=== PATIENT | male | born 1940 | race Caucasian/White ===

== ENCOUNTER 2017-12-12 13:29 | Inpatient (IN) | payer MEDICARE, BC ==
[2017-12-12 14:08] LABS: #Basophils 0.1 thou/uL (0.0-0.2); #Eosinphils 0.1 thou/uL (0.0-0.7); #Lymphocytes 0.8 thou/uL (1.20-3.40); #Monocytes 0.8 thou/uL (0.11-0.59); #Neutrophils 6.8 thou/uL (1.40-6.50); %Basophils 0.6 % (0.0-1.0); %Eosinophils 1.5 % (0.0-10.0); %Lymphocytes 9.8 % (21.0-51.0); %Monocytes 9.1 % (0.0-10.0); %Neutrophils 79.1 % (42.0-75.0); Hemoglobin 15.9 g/dL (14.0-18.0); Mean Corpuscular HGB CONC 33.2 g/dL (32.0-36.0); Mean Corpuscular Hemoglobin 29.9 pg (27.0-31.0); Mean Corpuscular Volume 90.1 fL (78.0-98.0); Mean Platelet Volume 8.8 fL (7.4-10.4); Platelet Count 276 thou/uL (130-400); RBC Distribution Width 15.2 % (11.5-14.5); Red Blood Cell (RBC) Count 5.33 mill/uL (4.70-6.10); White Blood Cell (WBC) Count 8.6 thou/uL (4.8-10.8)
[2017-12-12 14:31] LABS: ALT (SGPT) 8 U/L (8-55); AST (SGOT) 21 U/L (5-34); Albumin 3.8 g/dL (3.4-4.8); Alkaline Phosphatase 101 U/L (40-150); Anion Gap 18 mmol/L (10-20); BUN (Urea Nitrogen) 19 mg/dL (8.4-25.7); Bilirubin, Total 1.4 mg/dL (0.2-1.2); Calc. Creatinine Clearance 0 mL/min (70-130); Calcium 9.5 mg/dL (7.8-10.44); Carbon Dioxide 22 mmol/L (23-31); Chloride 98 mmol/L (98-107); Estimated GFR-MDRD 62; Globulin 3.2 g/dL (2.4-3.5); Glucose 91 mg/dL (83-110); Magnesium 2.5 mg/dL (1.6-2.6); Potassium 4.1 mmol/L (3.5-5.1); Sodium 134 mmol/L (136-145)
--- NOTE | 2017-12-12 14:38 | RAD ---
2 AP VIEWS OF CHEST: Date: 12/12/17 INDICATION: Syncope and lightheadedness. COMPARISON: Prior study dated 04/01/16. FINDINGS: There is stable mild cardiomegaly. Lungs are clear. No pleural effusion or pneumothorax is evident. N o acute osseous abnormality is noted. Midline sternotomy changes are stable. IMPRESSION: No acute cardiopulmonary abnormality. POS: [facility]
[2017-12-12 14:49] LABS: Troponin I 0.062 ng/mL (< 0.028)
[2017-12-12 16:39] LABS: Bilirubin Small (Negative); Blood, Urine Negative (Negative); Clarity CLEAR (Clear); Glucose, Urine (Dipstick) Negative (Negative); Leukocyte Negative (Negative); Nitrite Negative (Negative); Protein, Urine (Dipstick) 30 mg/dL (Neg-Trace); pH, Urine 5.5 (5.0-9.0)
[2017-12-12 16:41] LABS: Bacteria/HPF None Seen HPF (None Seen); Hyaline Casts/LPF 7-10 HYALINE CAST LPF (0-3 Hyaline); Pathc Cast-AUWi Flag 1.45 (0-2.49); Squamous Epithelial 0-3 HPF (0-3); WBC/HPF 0-3 HPF (0-3)
[2017-12-12 17:40] LABS: Troponin I 0.069 ng/mL (< 0.028)
[2017-12-12] MEDS ORDERED: Acetaminophen 325 MG TAB PO PRN (18:46)
[2017-12-12 18:50] VITALS: BMI 20.5
--- NOTE | 2017-12-12 20:02 | RAD ---
ABDOMEN TWO VIEWS: 12/12/17 HISTORY: Abdominal pain. Bloating and discomfort. COMPARISON: None. FINDINGS: There is extensive dilatation of air filled loops of small bowel. There is still evidence of air and fecal material in the right hemicolon. Scattered differential air fluid levels are noted. No pneumope ritoneum. Nonspecific punctate densities in the left upper quadrant. IMPRESSION: Partial small bowel obstruction is suspected. Better interrogation with an abdomen and pelvic CT util izing oral and IV contrast is recommended. POS: [facility]
[2017-12-12] MEDS: Sodium Chloride 0.9% 1,000 ML IV SCH (20:30)
[2017-12-12] MEDS: Apixaban 5 MG TAB PO SCH (20:30)
[2017-12-12] MEDS ORDERED: Ondansetron HCl/PF 4 MG/2 ML Vial IVP PRN (22:21)
--- NOTE | 2017-12-12 22:57 | HP ---
PRIMARY CARE PHYSICIAN: Dr. Laureano. CHIEF COMPLAINT: "Extremely dizzy when I stand up." HISTORY OF PRESENT ILLNESS: Mr. Arzate is a pleasant 77-year-old gentleman, who has a history of hyp ertension, coronary artery disease, history of atrial flutter, status post radiofrequency ablation. He was in his usual state of health until the last couple of weeks. He says he has been having troub le when he gets up out of bed. He says he feels extremely lightheaded and dizzy. He says that when he will sit down to rest then he would get palpitations and it will take him about 5 minutes or so to recover. He denies having any chest pain; however, he says that he has a history of atrial flutter, but had been in sinus rhythm for several years until just recently, he was diagnosed with atrial fib rillation. He says this was in 06/2017. He also was told he had some type of heart valve problem ar ound that same time. He says he had an appointment with Dr. Morley on today, but his symptoms wer e so bad that he could not take it anymore and had to call the ambulance to come. He said he was not sure he would even be able to make it to his car and be able to drive to the hospital. He also complains of some abdominal he calls it congestion and feeling bloated. He says he has not h ad a real bowel movement in several days. He denies having any blood in the stool, no dark stools. He did say that he did vomit on the way to the hospital, but he did not vomit any blood. He is not s ure if it is related to recently being started on Plaquenil, which he said he was started on about a week and a half ago. He also admits to losing about 20 pounds in the last 2 months, could be says he has not been able to eat very much and he also says that he recently had a positive Cologuard test a nd was in the process of scheduling a colonoscopy. REVIEW OF SYSTEMS: All systems were reviewed and are negative with the exception of an occasional co ugh with some congestion. PAST MEDICAL HISTORY: Significant for coronary artery disease, transient ischemic attack, hypertensi on, hyperlipidemia, atrial flutter, systemic lupus. PAST SURGICAL HISTORY: He is status post radiofrequency ablation, coronary artery bypass grafting mcdonald rgery, cataract surgery, and lens implant. ALLERGIES: No known drug allergies. SOCIAL HISTORY: He is . He has 1 child. He is a former smoker. He occasionally drinks. He would like to be a [employer] and his surrogate decision maker is his and that is Thierry Arzate. FAMILY HISTORY: Significant for coronary artery disease. CURRENT MEDICATIONS: Include Plaquenil 200 mg twice a day, Combigan eyedrops as well as Travatan eye drops, aspirin 81 mg daily, metoprolol extended release 50 mg daily, hydrochlorothiazide 12.5 mg karen y, Eliquis 5 mg twice a day, and Lipitor 10 mg, he says he only takes it twice a week. PHYSICAL EXAMINATION: GENERAL: He is alert and oriented. He appears to be in no acute distress. He is well-developed, bu t he does appear a bit thin for his height. VITAL SIGNS: Blood pressure was 136/91, heart rate 90, respiratory rate of 18, temperature is 97.8. HEENT: His pupils are equal, round, and reactive. Extraocular muscles are intact. His sclerae are anicteric. Throat: There is no erythema, no exudates. He did have slightly dry mucous membranes. His tympanic membranes were nonbulging. There was no fluid behind the drum. No redness. He did hav e an area behind the left ear, which was slightly tender and slightly raised, but there was no fluctu ance, no redness. NECK: There is no adenopathy, no bruits, no jugular venous distention. LUNGS: Clear to auscultation. There is no wheezing, no rales, no rhonchi. CARDIOVASCULAR: Heart rate is irregular. He did have what sounds like a S3 gallop. He has a grade 2/6 systolic murmur and it is a very odd, slightly clicking blowing sound. ABDOMEN: Slightly distended. Tympanic to percussion. It is nontender, nondistended. There is no d ullness to percussion and there is no evidence of any organomegaly. EXTREMITIES: There is no muscle tenderness, no joint effusions or redness. NEUROLOGIC: His muscle strength is 5/5 in both his upper and lower extremities and cranial nerves II -XII are intact. SKIN AND INTEGUMENT: There are no skin changes. There was some slight mottling, but no distinct janeth ruth reticularis. LABORATORY DATA AND IMAGING: His sodium is 134, potassium 4.1, chloride is 98, CO2 is 21, BUN of 18, creatinine is 1.15, glucose is 91, total bilirubin is 1.4. Troponin is 0.062. White blood cell cou nt is 8.6, hemoglobin is 15.9, hematocrit is 48, platelet count is 276. Urinalysis was essentially n egative. He had an EKG which showed atrial fibrillation with a right bundle branch block and he had some T-wave inversions in V1 through V3, this is by my reading. He also had a chest x-ray, which I r ead as having some cardiomegaly and no evidence of any specific airspace disease. There was no effus ion. ASSESSMENT AND PLAN: This is a 77-year-old gentleman that presents with the progressive complaint of dizziness and feeling lightheaded. I guess this could best be described as presyncope. I suspect t his might be related to both his atrial fibrillation as well as possible some volume depletion. The patient states that he does feel better after being given a liter of fluids in the ER. 1. With regards to presyncope, we will monitor him on telemetry to see if he has any significant karyn nges in his heart rate with regard to his atrial fibrillation. Consult Dr. Morley, who has seen luiz rainey fairly recently and he states he has had an echo within the last few weeks per his recollection. Therefore, we will hold off on ordering an echo at this time and place him on some fluids. 2. Abdominal discomfort and bloating. We will get an abdominal series just to make sure he does not have a partial bowel obstruction or fecal impaction. Based on the x-ray results, will depend on whe ther or not he requires any additional treatment. 3. His blood pressure appears to be well controlled. We will continue metoprolol, which will also h elp in his heart rate management. However, we will hold the hydrochlorothiazide given concerns for p ossible dehydration. 4. For systemic lupus, continue Plaquenil. 5. The patient will not require deep venous thrombosis prophylaxis as he is already on Eliquis for s troke prevention with regards to the atrial fibrillation.
[2017-12-12 23:38] LABS: Troponin I 0.126 ng/mL (< 0.028)
[2017-12-13 02:32] LABS: Troponin I 0.151 ng/mL (< 0.028)
[2017-12-13 05:08] LABS: #Eosinphils 0.1 thou/uL (0.0-0.7); #Lymphocytes 0.7 thou/uL (1.20-3.40); #Monocytes 0.8 thou/uL (0.11-0.59); #Neutrophils 5.8 thou/uL (1.40-6.50); %Basophils 0.4 % (0.0-1.0); %Eosinophils 1.5 % (0.0-10.0); %Lymphocytes 9.9 % (21.0-51.0); %Monocytes 10.6 % (0.0-10.0); %Neutrophils 77.6 % (42.0-75.0); Hemoglobin 13.7 g/dL (14.0-18.0); Mean Corpuscular HGB CONC 33.3 g/dL (32.0-36.0); Mean Corpuscular Hemoglobin 29.9 pg (27.0-31.0); Mean Corpuscular Volume 89.9 fL (78.0-98.0); Mean Platelet Volume 8.6 fL (7.4-10.4); Platelet Count 248 thou/uL (130-400); RBC Distribution Width 15.2 % (11.5-14.5); Red Blood Cell (RBC) Count 4.58 mill/uL (4.70-6.10); White Blood Cell (WBC) Count 7.4 thou/uL (4.8-10.8)
[2017-12-13 05:31] LABS: Anion Gap 14 mmol/L (10-20); BUN (Urea Nitrogen) 20 mg/dL (8.4-25.7); Calc. Creatinine Clearance 56 mL/min (70-130); Carbon Dioxide 24 mmol/L (23-31); Cardiac Risk 6.4 (Less than 4.5); Chloride 100 mmol/L (98-107); Cholesterol 135 mg/dl (< 200 Desired); Estimated GFR-MDRD 67; Glucose 77 mg/dL (83-110); HDL Cholesterol 21 mg/dL (>60 Neg Risk); LDL Cholesterol, Calculated 91 mg/dL; Potassium 4.6 mmol/L (3.5-5.1); Sodium 133 mmol/L (136-145); Triglycerides 113 mg/dL (Less than 150)
[2017-12-13] MEDS: Apixaban 5 MG TAB PO SCH (08:47)
[2017-12-13] MEDS: Aspirin 81 mg Enteric Coated Tablet PO SCH (08:47)
[2017-12-13] MEDS: Sodium Chloride 0.9% 1,000 ML IV SCH ×2 (14:07→19:45)
--- NOTE | 2017-12-13 14:07 | PDOC.PN ---
- Subjective Encounter Start Date: 12/13/17 Encounter Start Time: 14:06 Mr. Arzate was seen today in follow-up. He says he doesn't feel any better today than yesterday. He denies abdominal but admits to bloating. He has not had a bowel movement today. He denies chest pain or difficulty brathing. - Objective Resuscitation Status: Resuscitation Status FULL:Full Resuscitation MAR Reviewed: Yes Vital Signs & Weight: Vital Signs (12 hours) Temp Pulse Resp BP BP Pulse Ox 12/13/17 11:55 98.3 F 102 H 18 148/89 H 96 12/13/17 07:51 98.1 F 96 18 145/94 H 98 12/13/17 04:04 98.4 F 102 H 18 141/97 H 97 Weight Weight 147 lb 8 oz I&O: 12/12/17 12/13/17 12/14/17 06:59 06:59 06:59 Intake Total 582 Output Total 600 Balance 582 -600 Result Diagrams: 12/13/17 04:55 12/13/17 04:55 Phys Exam - Physical Examination HEENT: PERRLA Respiratory: no wheezing, no rales, no rhonchi, clear to auscultation bilateral Cardiovascular: no significant murmur, no rub, irregular 3/6 systolic murmur Gastrointestinal: soft, non-tender + distended, and tympanic to percussion, bowel sounds are diminished Musculoskeletal: no edema Dx/Plan (1) Pre-syncope Status: Acute (2) Atrial fibrillation Code(s): I48.91 - UNSPECIFIED ATRIAL FIBRILLATION Status: Acute (3) Partial small bowel obstruction Status: Acute (4) Coronary artery disease Code(s): I25.10 - ATHSCL HEART DISEASE OF [place] CORONARY ARTERY W/O ANG PCTRS Status: Chronic (5) Hypertension Code(s): I10 - ESSENTIAL (PRIMARY) HYPERTENSION Status: Chronic - Plan * Presyncope- this is likely due AFIB- his heart rate has been variable, and at times up to 140-150's for short periods- will await further recommendations from Cardiology * Abdominal bloating- Abdominal series was concerning for partial bowel obstruction- will check a CT scan of the abdomen and pelvis- GI- vs. Surgery consult depending on the results * He is NPO for now- may need to bridge him with Lovenox - pending CT scan results * HTN- blood pressure is slightly elevated- but within acceptable range- will add PRN Labetalol .
[2017-12-13] MEDS ORDERED: ISOVUE-370 76%-LOCM 1 ML ONE (14:14)
[2017-12-13] MEDS ORDERED: Labetalol HCl 100 MG/20 ML VIAL SLOW IVP PRN (14:18)
[2017-12-13] MEDS ORDERED: Digoxin 0.5 MG/2 ML AMP SLOW IVP SCH ×2 (15:00→21:00)
[2017-12-13] MEDS ORDERED: Glycopyrrolate 0.2 MG/ML 5 ML SYRINGE ONE (15:47)
[2017-12-13] MEDS ORDERED: PROPOFOL 200 MG/20 ML VIAL ONE (15:47)
[2017-12-13] MEDS ORDERED: PHENYLEPHRINE-NS 100 MCG/ML 10 ML SYRINGE ONE (15:47)
[2017-12-13] MEDS ORDERED: Lidocaine 1% PF 5 ML VIAL ONE (15:47)
[2017-12-13] MEDS ORDERED: Dexamethasone 20 MG/5 ML VIAL ONE (15:47)
[2017-12-13] MEDS ORDERED: Succinylcholine Chloride 20 MG/ML 10 ml SYRINGE FS ONE (15:47)
[2017-12-13] MEDS ORDERED: Ondansetron HCl/PF 4 MG/2 ML Vial ONE (15:47)
[2017-12-13] MEDS ORDERED: Metoprolol Tartrate 5 MG/5 ML VIAL ONE (15:47)
--- NOTE | 2017-12-13 16:08 | CT ---
CT OF ABDOMEN AND PELVIS PERFORMED WITH CONTRAST ENHANCEMENT: History: Abdominal pain and bloating. FINDINGS: The lung bases are clear of any infiltrative process. Within the left lower lobe there are some areas of questionable nodularity, the most pronounced is a 1.4 cm area noted on image 6 which could repres ent a pulmonary mass. There is a second vague density seen on the axial image 3, also in the left low er lobe. This examination was obtained in more of an arterial phase. The liver and spleen show no definite foc al abnormalities. Pancreas region is unremarkable. Gallbladder is normal in size. There is abnormal appearance to both adrenal glands. There is a somewhat enlarged flow attenuation ar eas and somewhat more focal discrete mass like area involving the inferior portion of the left adrena l gland. There is a somewhat bilobed appearing low attenuation mass which does not have simple cystic numbers involving the lower pole of the right kidney. It measures as much as 11.1 cm in dimension. A ssociated with this is pathologic adenopathy in the right renal hilar region with two nodes, one garrison uring 4.1 cm and the other 2.6 cm in maximum dimension. There is also small periaortic and aortocaval nodes which while not significantly enlarged, appear abnormal and some mesenteric nodes, again not p athologically enlarged but somewhat rounded in appearance which is somewhat worrisome. The minimal fa t stranding adjacent to the splenic flexure of the colon, I cannot exclude that this represents some type of omental or mesenteric infiltration. There is high grade small bowel obstruction, somewhat unusual in that there appears that there is mor e than one transition area. I do not see any definite mass associated with areas of transition, some of which are in the mid abdomen and some in the lower abdomen. CT OF PELVIS PERFORMED WITH CONTRAST ENHANCEMENT: There are some soft tissue changes which are low attenuation and almost approach the fluid filled sma ll bowel that is seen in this area along the left side of the rectum. Review of osseous structures show no lytic or blastic bony change. IMPRESSION: 1. High grade small bowel obstruction, somewhat unusual in appearance as there is more than one trans ition point with some nondilated bowel loops in the midabdomen which transition again to more dilated bowel loops and then a second area of transition near the more distal ileum. No mass associated with these findings. The decompressed bowel shows some increased enhancement. I am not certyain of the ca use but entities such as Chrohns can cause this appearance. 2. 11.1 cm lower pole right renal mass, which appears to be solid. This is associated with pathologic appearing adenopathy in the right renal hilar region. There is also a small but abnormally numerous nodes in the aortocaval and periaortic region and some slightly prominent rounded mesenteric nodes. 3. Questionable left lower lobe pulmonary nodules. Further evaluation of this area with CT is recomme nded. 4. Findings suspicious for adrenal metastatic disease. Given the large right renal lesion, these hayes ges are probably on the basis of a renal cell carcinoma. I am attempting to contact Dr. Ruggiero at thi s time. 5. CT of chest reccomended to evauluate possible lung masses. POS: [facility]
[2017-12-13] MEDS ORDERED: Morphine 4 MG/ML Carpuject SLOW IVP PRN (17:02)
--- NOTE | 2017-12-13 17:02 | EKG ---
Test Reason : Blood Pressure : / mmHG Vent. Rate : 094 BPM Atrial Rate : 468 BPM P-R Int : 000 ms QRS Dur : 166 ms QT Int : 404 ms P-R-T Axes : 000 165 028 degrees QTc Int : 505 ms Suspect arm lead reversal, interpretation assumes no reversal Atrial fibrillation Right bundle branch block Lateral infarct , age undetermined Abnormal ECG Confirmed by DR. Ling GARNETT MD ([id number]) on 12/13/2017 5:02:18 PM Referred By: Confirmed By:DR. Ling GARNETT MD
--- NOTE | 2017-12-13 17:05 | PDOC.EVN ---
Event Note - Event Note Event Note: CT scan results were noted. I left a message for Dr. Griffin to let him know I have reviewed the CT scan and report. I discussed them with the patient, with his at the bedside. Will Place an NG tube, and add medication for pain as now he notes more abdominal pain. Will consult General Surgery, Gastroenterology , and Urology.
--- NOTE | 2017-12-13 17:47 | CON ---
DATE OF CONSULTATION: 12/13/2017 DATE OF ADMISSION: 12/12/2017 CARDIAC CONSULTATION Please refer to the notes already dictated by nurse practitioner Gia Pinto. INDICATION FOR CONSULTATION: A 77-year-old patient with dizziness, lightheadedness, and atrial fibrillation as well as abdominal discomfort. We were asked to see him due to his lightheadedness and atrial fibrillation with rapid ventricular response. HISTORY OF PRESENT ILLNESS: This is a very pleasant 76-year-old gentleman who has a history of atrial fibrillation which is felt to be chronic now. He has had history of bypass surgery in the past. He developed atrial fibrillation. He has undergone 2 ablations of atrial flutter in the past. With the atrial fibrillation, he does have occasional rapid ventricular response. He complains of some dizziness and sometimes unable to eat or lightheadedness. He is unable to eat or even the shave some mornings, when he gets up, he feels lightheaded and has to sit down. This may be due to the tachycardia associated with atrial fibrillation. He has been placed on Eliquis and also was taking 325 mg of aspirin. He has had ejection fraction in the past about 65%, this was back in 2006. He underwent a repeat echocardiogram in June of this year which showed ejection fraction of 55%-60% with only mild mitral and tricuspid valve regurgitation. He has had a stress test also in June of this year which showed no ischemia. Ejection fraction is estimated at 53%. He did have bypass surgery in 2006. He has been doing relatively well, but recently, he has noted that he has been feeling like he can empty his bowels when he has a bowel movement and he then did a home study himself and sent that off which showed possibly he did have an abnormality at least he feels uncertain as to whether or not that was due to some DNA markers or whether or not he had positive heme in the stools, but my suspicion is he was heme positive. He has been apparently making efforts to obtain GI consultation for evaluation for colonoscopy, but at this time he feels like he has some mild bloating and he is in the hospital at this time due to having the lightheadedness and the abdominal discomfort and he is now being prepped to undergo a CT scan with contrast and he is in the process of trying to drink the contrast material. He denies any chest pain and he does notice the palpitations and rapid heart rates and does have some lightheadedness and even at times now the heart rates in the 100s with the atrial fibrillation. His admitting EKG showed a heart rate of 94 with atrial fibrillation and a right bundle branch block. Since that time, he has had episodes of the atrial fibrillation with the heart rate was increased up to 140 to 150 beats per minute. He is on a beta kong and this may need to be adjusted to increase the dose. Hopefully, his blood pressure will tolerate that, he had been taking metoprolol 50 mg once a day. Once we have finished the evaluation of the GI studies and he can take p.o. again, then we will increase the dose of beta blockers if he tolerates this. Also of note, patient over the last couple of months has lost over 20 pounds in weight. He denied any significant diarrhea or any other reason for the weight loss. He is not significantly anemic. His hemoglobin is 13.7. Also, we were asked to see the patient as he has some indeterminate cardiac enzymes and troponin I on admission was 0.069 increased up to 0.1, and is now up to 0.15, not unlikely in someone who has had some tachycardia associated with atrial fibrillation. The BNP was also slightly elevated at 493, but again he does not have any indication that he has any congestive heart failure at this time. PHYSICAL EXAMINATION: GENERAL: Reveals a well-developed, well-nourished gentleman in no acute distress. He is alert. He is oriented. VITAL SIGNS: His blood pressure is 149/89, heart rate is anywhere between 80s- 102-105 and is actually at one time gone up to 140-150, but right at the present time, his heart rate is less than 100, respiratory rate is 18, he is afebrile and O2 saturation 96%. HEENT: Head to be normocephalic, atraumatic. Carotid pulses are present. There are no bruits. CHEST: Clear to auscultation without rales, rhonchi or wheezing. CARDIOVASCULAR: Exam reveals a tachycardia with an irregular regular rhythm. He does have a systolic murmur at the apex. There were no heaves or thrills noted. ABDOMEN: Soft and nontender. He does have some tympany. He has increased bowel sounds. I cannot palpate any masses. EXTREMITIES: Show no clubbing, cyanosis or edema. He does have some mild discoloration of the lower extremities from the knees down to the feet ,a grayish type discoloration, but otherwise no edema was noted and pedal pulses are difficult to palpate. I cannot palpate pedal pulses, I could palpate popliteal pulses. NEUROLOGIC: The patient appears to be intact. IMPRESSION: 1. At this time is an elderly gentleman with a history of some GI discomfort, some mild bloating and probably guaiac positive stools with a weight loss of 20 pounds. This is certainly concerning for this gentleman who may have underlying malignancy. He will be evaluated today and further recommendations will depend on the followup of these studies and these followups. 2. Atrial fibrillation with rapid ventricular response. We will adjust his medications and we can add digoxin at this time for rate control and further care of the patient with atrial fibrillation will be dealt with by Dr. Morley when he sees the patient tomorrow. 3. Hypertension. He is under reasonable control at this time, slightly elevated. We can increase the beta blockers to cover the tachycardia as well as the elevation of the blood pressure. 4. History of coronary artery disease. He does not appear to be having any issues at this time from his coronary artery disease standpoint. He underwent bypass surgery 11 years ago and apparently has been doing well since that time. We will also hold his Eliquis at this time in anticipation of probable further GI evaluation. He is also on aspirin 81 mg a day and has been placed on Lovenox. We will be very careful with Lovenox and will watch for bleeding should he have some type of colon abnormality or mass that could start to hemorrhage. JASPREET
[2017-12-13] MEDS ORDERED: Meropenem 2 GM in Sodium Chloride 0.9% 100 ML IVPB SCH (18:30)
[2017-12-13] MEDS: NS 0.9% w/ 20 MEQ KCL 1,000 ML/1,000 ML BAG IV SCH (19:45)
--- NOTE | 2017-12-13 19:53 | HP ---
HISTORY OF PRESENT ILLNESS: A 77-year-old male, retired 8 weeks, has been experiencing abdomin al distention and bloating. He feels that when he empties his bowels, they are incomplete. Bowel mo vements have been scant and abnormal. He has not had a normal bowel movement for several weeks. He passed a scant amount of flatus yesterday, but he cannot remember when he last passed flatus. He was feeling very weak, had a near syncopal episode, called EMS and presented to the emergency room where he was evaluated and admitted yesterday. He had equivocally elevated troponins, elevated BNP and wa s placed on observation unit. Abdominal x-ray suggested obstruction. Today, he had a CAT scan of e abdomen and pelvis with oral contrast revealing changes consistent with small bowel obstruction, sp lenic flexure, colon abnormality, questionable significance 11.5 cm right renal mass, left renal callie r pathologic lymphadenopathy, left lower lobe lung nodules, periaortic questionably significant lymph adenopathy. The patient has never had an abdominal operation. He had a positive saw Dr. Vasquez 4-5 days ago and colonoscopy was planned in the future. He is on Eliquis for atrial fibrillation and I would have to be held. Last dose of Eliquis was yesterday morning more than 36 hours ago. The patient has bee n on therapeutic Lovenox received 16 mg subcu this morning. I have ordered a pill that for now. He has been in atrial fibrillation, RVR and treated medically for that. Dr. Ulises Coughlin has seen him. Se e below. ALLERGIES: None. TOBACCO: None. ALCOHOL: Rarely. MEDICATIONS AT HOME: Travatan eyedrops, metoprolol 50 mg at bedtime, Plaquenil 200 mg b.i.d., hydroc hlorothiazide 12.5 daily, brimonidine tartrate, atenolol, Combigan eyedrops b.i.d., Lipitor 40 mg a d ay, aspirin 81 mg a day, Eliquis 5 mg b.i.d., last dose 09:24 p.m. or 09:25 a.m., none since. PAST SURGICAL HISTORY: Coronary artery bypass grafting in 2010. He has never had a colonoscopy. PAST MEDICAL HISTORY: Coronary artery disease, coronary bypass grafting 11 years ago, normal chemica l stress test in Dr. Morley's office earlier this year. Echocardiogram, normal EF 60%-65% earlier this year, chemical stress test 53% ejection fraction, cardiac ablation for atrial fibrillation in t he past. REVIEW OF SYSTEMS: [place] point noncontributory otherwise. SOCIAL HISTORY: The patient is and lives in [place]. FAMILY HISTORY: Noncontributory. PHYSICAL EXAMINATION: VITAL SIGNS: 5 feet and 11 inches, 20 BMI, 97.2, 110, 135/80. HEAD, EYES, EARS, NOSE, AND THROAT: Unremarkable. LUNGS: Clear to auscultation. CARDIAC: Regular rate and rhythm without murmur or gallop. ABDOMEN: Distended, tympanitic. Increased bowel sounds. NG tube in place. EXTREMITIES: Unremarkable. LABORATORY DATA: Sodium 133, potassium 4.6, chloride 100, carbon dioxide 24, creatinine 1.08, GFR 67 , glucose 77. Troponins elevated, BNP yesterday 493, hemoglobin 13.7, white count 7.4. ASSESSMENT AND PLAN: 1. Small bowel obstruction in a patient who has not had abdominal operation. The right renal mass i s concerning and there is evidence of suggested metastatic disease with a left renal perihilar lympha denopathy, abnormal splenic flexure colon area and pulmonary nodules, left lower lobe. Positive [place] guard stool test 5 days ago, referred to Dr. Vasquez. Radiologic findings do not suggest colon obstruct ion from the splenic flexure process, but more of a small-bowel obstruction which is concerning this may be due to metastatic disease. Would recommend exploratory laparotomy tonight, bowel resection as indicated, possible colostomy. Risk and benefits discussed, he consents. 2. Coronary artery disease, stable, seen by Dr. Coughlin and his mild troponin elevation is more from de sloane ischemia from his RVR that is better controlled and resolving. Would plan to monitor him postop eratively IMCU or ICU tonight. 3. Right renal mass with evidence of metastasis. 4. History of atrial fibrillation on anticoagulation, held for more than 36 hours. 5. Poor IV access, IV right antecubital placed by EMS. We will plan placement of central line intr aoperatively. 6. Never has had a colonoscopy.
[2017-12-13] MEDS ORDERED: Sodium Chloride 0.9% 20 ML ONE (19:55)
[2017-12-13] MEDS ORDERED: Fentanyl 250 MCG/5 ML VIAL ONE (20:05)
--- NOTE | 2017-12-13 20:47 | CON ---
DATE OF CONSULTATION: 12/13/2017 HISTORY OF PRESENT ILLNESS: The patient is a 77-year-old male, who presented with weakness and dizziness and feeling of wanting to pass out. He thought this was his atrial fibrillation causi ng him problems. He does report some diffuse abdominal discomfort that has been going on for several months. He also reports a 20-pound weight loss. He has had no nausea or vomiting. He has not had much change in his bowel habits. He saw Dr. Vasquez in the office on 12/08/2017 for a positive Cologuar d test. He has never had a previous colonoscopy. PAST MEDICAL HISTORY: Includes atrial fibrillation, aortic stenosis, inflammatory polyarthritis, cor onary artery disease. PAST SURGICAL HISTORY: Coronary artery bypass, angioplasty. He denies any abdominal surgery. ALLERGIES: No known allergies. MEDICATIONS: Plaquenil 200 mg 1 p.o. daily, prednisone 5 mg p.o. daily, aspirin 81 mg p.o. daily, me toprolol 50 mg p.o. daily, hydrochlorothiazide 12.5 mg 1 p.o. daily, Eliquis 5 mg p.o. b.i.d., atorva statin 40 mg p.o. daily. SOCIAL HISTORY: He is . Occasional alcohol use. Former smoker, but does not smoke now. FAMILY HISTORY: Negative for GI or liver disease. REVIEW OF SYSTEMS: Constitutional: Positive for weight loss. Negative for fever or chills. Eyes: No blurred vision or double vision. ENT: No sore throat or earaches. Cardiovascular: No chest pa in or palpitations. Pulmonary: No shortness of breath, cough, or wheezing. Gastrointestinal: See above. Genitourinary: No hematuria or dysuria. Musculoskeletal: No joint pain or muscle weakness. Skin: No rashes. Neurologic: No numbness or seizure activity. Positive for lightheadedness. PHYSICAL EXAMINATION: GENERAL: Shows a thin white male in no acute distress. VITAL SIGNS: Temperature is 97.2, pulse 110, respiratory rate 15, blood pressure 135/80. HEENT: Significant for nasogastric tube. NECK: Supple. CHEST: Clear. CARDIOVASCULAR: Regular rate and rhythm. ABDOMEN: Diffusely tympanitic and somewhat distended. It is nontender. Bowel sounds are present. RECTAL: Deferred. EXTREMITIES: Normal. LABORATORY DATA: Admission hemoglobin of 59, hematocrit of 48, white blood cell count of 8.6. Chemi stries showed a sodium of 134, CO2 of 22, total bilirubin 1.4. CT shows high-grade small-bowel obstr uction, somewhat unusual in appearance with more than 1 transition zone. There was a 11.1 cm right r enal mass and adenopathy associated with this. There are questionable left lower lobe pulmonary nodu les. ASSESSMENT: 1. Small-bowel obstruction. 2. Right renal mass - this probably represents metastatic renal cell carcinoma. 3. Atrial fibrillation, on Eliquis. 4. History of positive Cologuard. RECOMMENDATIONS: 1. Stop Eliquis. 2. Surgical opinion. 3. N.P.O.
[2017-12-13] MEDS ORDERED: Enoxaparin Sodium 60 MG/0.6 ML SYRINGE SC SCH (21:00)
--- NOTE | 2017-12-13 21:24 | CON ---
DATE OF CONSULTATION: 12/13/2017 ROOM NUMBER: [id number] PRIMARY CARE PHYSICIAN: Tonny Laureano M.D. PRIMARY DINKEY OPERATOR SLATE: Nicolas Morley M.D. REFERRING PHYSICIAN: Simi Ruggiero REASON FOR CARDIOLOGY CONSULTATION: Atrial fibrillation and palpitation. HISTORY OF PRESENT ILLNESS: Mr. 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 The last couple days, he could not get up in the morning from the bed due to th e weakness, shortness of breath, and heaviness to the bilateral lower extremities. However, yesterda y morning, his symptoms get worsen, so patient's family member called the EMS and the patient was tra nsferred to the [facility] for further evaluation and treatment. At this moment , patient is to continue feeling weakness; however, patient does have shortness of breath or heavines s in the bilateral lower extremities. The patient denies any palpitation or any syncopal episode or he never passing out. However, he also complained of cramping in his stomach for several days. He h ad at home, which was positive and he was referred to Dr. Vasquez for [facility] colon[facility]. [facility] Mor[facility] yesterday in the office for colonoscopy procedure clearance by the control clerk; however, instead the patient presents to the Emergency Department her e. He is continued to complain of abdominal pain with cramping and he refused to palpitate his stoma ch at this moment. At the initial Cardiology assessment, patient denies shortness of breath, palpita tion or fluttering in his chest or lightheadedness, dizziness, or any other cardiac complaints except the feel still weakness and shortness of breath with mild movement. He denied blood in the stool or urine. Patient has a significant family history of coronary artery disease and the patient himself has a his tory of coronary bypass surgery in 2006, patient has a long history of atrial fibrillation and flutte r. The patient has atrial flutter ablation x2, which last one was in 2013. Since then, the patient' s heart rhythm has changed to the chronic atrial fibrillation. He has been on Eliquis 5 mg twice a d ay. The patient's last stress test was done in 06/2017, which no ischemia with EF of 53% and last ec hocardiogram was done in 06/2017 with EF of 55% to 60%, mild mitral valve regurgitation, mild tricusp id regurgitation, and mild to moderate pulmonary valve regurgitation. He has not seen a rheumatologi st for a long period time for rheumatoid arthritis. PAST MEDICAL HISTORY: 1. Coronary artery disease. 2. Hypertension. 3. Hyperlipidemia. 4. Atrial flutter and atrial fibrillation with Eliquis 5 mg twice a day. 5. Bilateral glaucoma. 6. Rheumatoid arthritis. 7. Possible TIA in and out in March 2016. PAST SURGICAL HISTORY: Coronary artery bypass graft surgery in 2006, left cataract surgery, and the atrial flutter ablation x2 which last one was in 2013, since then he has been in atrial fibrillation on EKG. FAMILY HISTORY: Patient's father underwent a CABG at age of around 60s. The patient's brother under went a CABG at the age of 52. Patient's mother had a valve replacement around the age of 70s. There are significant hypertension history in his families. SOCIAL HISTORY: The patient is . 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 The patient has a one child who live well. He used to smoke one pack a day for 40 yea rs. He quit in 2007. He enjoyed alcohol less than once a week. He denied illicit drug abuse. He d rinks 3 cup of coffee in the morning. REVIEW OF SYSTEMS: A 12-point review of systems was negative, unless otherwise mentioned in the HPI or below. The patient complained of abdominal pain/cramps for several days. The patient denies bloo d in the stool or urine and the patient complained of joint problems due to the long history of rheum atoid arthritis. ALLERGIES: He has no known drug allergy. HOME MEDICATIONS: 1. Metoprolol succinate 50 mg once a day. 2. Travatan 2.5 mL 1 drop each eye at night. 3. Microzide 12.5 mg once a day. 4. Eliquis 5 mg twice a day. 5. Plaquenil 200 mg twice a day. 6. Lipitor 40 mg once a day. 7. Combigan 1 drop in each eye twice a day. 8. Aspirin 81 mg once a day. PHYSICAL EXAMINATION: VITAL SIGNS: Blood pressure 135/80, pulse is 110, atrial fibrillation with right bundle mushtaq block . Respiratory rate of 15, O2 sat 98% on room air, temperature 97.2. GENERAL: The patient is alert, oriented x4, and patient not in acute distress. He is well developed . HEAD/EYES: Atraumatic, normocephalic. Eyes: Extraocular muscles movement intact. ENT/MOUTH: Oral and nasal mucosa are moist without lesion. NECK: Supple. No JVD. Normal range of motion. LUNGS: Clear to auscultation bilaterally. No wheezing, rales, or rhonchi noted. CARDIOVASCULAR: Irregularly irregular. No murmur, hives, thrill noted, 2+ pulses in bilateral lower extremities. No edema. Carotid pulses are present without bruit or thrill. ABDOMEN: The patient refused to palpate his stomach, but bowel sounds are present. MUSCULOSKELETAL: The patient able to move all extremities. Patient deny any complication claudicati on. SKIN: Warm and dry. No skin lesion, bruit, or arrhythmia but he has a discoloration on the lower bi lateral extremities. NEUROLOGIC: The patient alert, oriented x4. Nonfocal. LABORATORY DATA: WBC 7.4, hemoglobin 13.7, hematocrit 41.2, platelet 248. Chemistry: Sodium 133, p otassium 4.6, creatinine is 1.08, magnesium 2.5, AST is 21, ALT 8. Troponin I is 0.069, 0.100, 0.126 , and 0.151. BNP is 493.9, cholesterol 135, triglycerides 113, HDL 21, LDL 91. RADIOLOGY: Chest x-ray showed no acute cardiopulmonary abnormality. Abdomen and pelvis CT scan revi ew high grade small-bowel obstruction and 11.1 lower pole right renal mass and a questionable left lo wer lobe pulmonary nodule. ASSESSMENT AND PLAN: 1. Indeterminate troponin level, possible due to the chronic atrial fibrillation with rapid ventricu lar response. At this moment, the patient's heart rate is 100-110s. The patient's digoxin was alrea dy ordered by Dr. Coughlin and the patient is on Lovenox twice a day. The patient Eliquis is on hold at this moment and the patient on the metoprolol 50 mg once a day at night. If we cannot control the azar harvey's heart rate with digoxin, we might like to start some other different medication, possible dil tiazem, Multaq, amiodarone. At this moment, we would like to continue to monitor on the telemetry. 2. Small-bowel obstruction. General surgeon consult was ordered already and also GI doctors. GI co nsult was ordered by patient's primary service at this moment, the patient is n.p.o. 3. Coronary artery disease with a history of coronary artery bypass graft done in 2006. Patient's c ondition is stable at this moment, we would like to continue to monitor. 4. Hypertension check. The patient's blood pressure is stable at this moment. 5. Hyperlipidemia. Patient is on Lipitor 40 mg once a day. At this moment, we would like to hold t his medication until the patient's condition is stable. 6. Right renal mass. Urology consult was ordered by patient's Primary Service. 7. Questionable left lower lobe pulmonary nodule, which is managed by patient's primary care doctor at this moment. Thank you very much for allowing the Cardiology Service to participate in care of this patient. We w ill follow along the patient care team and make a recommendation as appropriate.
[2017-12-13] MEDS ORDERED: SUGAMMADEX SODIUM 200 MG/2 ML VIAL ONE (21:58)
[2017-12-13] MEDS ORDERED: hydrALAZINE 20 MG/ML VIAL ONE (22:08)
[2017-12-13] MEDS ORDERED: fentaNYL Citrate/PF 2,000 MCG in Sodium Chloride 0.9% 60 ML IV PRN (22:09)
[2017-12-13] MEDS ORDERED: diphenhydrAMINE 25 MG CAP PO PRN (22:09)
[2017-12-13] MEDS ORDERED: diphenhydrAMINE 50 MG/ML VIAL IM PRN (22:09)
[2017-12-13] MEDS ORDERED: Ondansetron HCl/PF 4 MG/2 ML Vial IVP PRN ×2 (22:09)
[2017-12-13] MEDS ORDERED: Promethazine HCl 25 MG/ML VIAL IM PRN ×2 (22:09)
[2017-12-13] MEDS ORDERED: Promethazine HCl 25 MG/ML VIAL SLOW IVP PRN (22:09)
[2017-12-13] MEDS ORDERED: Naloxone HCl 0.4 mg/ml Vial IV PRN (22:09)
[2017-12-13] MEDS ORDERED: Zolpidem Tartrate 5 MG TAB PO PRN (22:09)
[2017-12-13] MEDS ORDERED: diphenhydrAMINE 50 MG/ML VIAL IVP PRN (22:09)
[2017-12-13] MEDS ORDERED: Communication Order-Pharmacy FS SCH (22:15)
--- NOTE | 2017-12-13 22:37 | RAD ---
RADIOGRAPH CHEST 1 VIEW: 12/13/17 at 10:06 p.m. HISTORY: Central line placement. COMPARISON: 12/12/17, 2:08 p.m. FINDINGS: There are no air space densities, pulmonary edema, pneumothorax, or cardiomegaly. The lateral costop hrenic angles are sharp. There is a new left subclavian central vascular catheter with distal tip ove rlying the expected location of the SVC. There is a new NG tube with distal tip in the left upper kan drant. Again noted are the sternotomy wires. IMPRESSION: 1. No acute cardiopulmonary findings. 2. Interval placement of central vascular catheter. 3. Interval placement of nasogastric tube. jesse [] POS: KARUNA
--- NOTE | 2017-12-13 23:35 | OP ---
DATE OF PROCEDURE: 12/13/2017 PREOPERATIVE DIAGNOSES: Poor IV access, 12 cm right renal mass, multiple extensive lymphadenopathy, and small bowel obstruction. POSTOPERATIVE DIAGNOSES: Poor IV access, 12 cm right renal mass, multiple extensive lymphadenopathy, small bowel obstruction, segmental small bowel tumor, high grade partial obstruction. No abnormalit ies appreciated in the colon on gross evaluation and manual and visual inspection. PROCEDURES: Exploratory laparotomy, segmental small bowel resection biopsy of mesenteric node and bi opsy of mesenteric implant. Left subclavian vein triple lumen catheter. Note, very large right luis armando l mass palpated consistent with CAT scan findings. SURGEON: Pacheco Rascon M.D. ANESTHESIA: General. ESTIMATED BLOOD LOSS: Less than 50 mL. PROCEDURE IN DETAIL: The patient was taken to the operating room where under general anesthesia, a F oley catheter was placed. Left periclavicular area prepared with ChloraPrep, draped in routine fashi on. Seldinger technique used to place a triple lumen catheter, removed the J-wire, securing the cath eter with 2 interrupted sutures of 3-0 silk. Biopatch sterile dressing applied. Each port aspirated blood and flushed saline solution. Abdomen prepared with ChloraPrep, draped in routine fashion. Midline incision was made centered abou t the umbilicus, carried down the skin and subcutaneous tissue and small bowel inspected to the termi nal ileum to ligament of Treitz. There was in the mid ileum, segmental stricture appearing like that of a tumor, possibly a small bowel tumor. This high grade partially obstructive. There were no oth er abnormalities of small bowel noted. A segment of small bowel resected by dividing the mesentery w ith the LigaSure. An approximately 65 inches of small bowel resected and a primary [id number] anas tomosis created with a staple technique, two fires of the ALAYNA blue load 75 stapler. Mesenteric defec t closed with 3-0 silk. Staple line reinforced with interrupted Lembert suture of 3-0 silk, lumen wa s palpated. There was noted to be an implant in the mesentery adjacent to small bowel and a shave bi opsy was obtained and placed in the same container as a node excised from the proximal jejunum mesent deejay. Good hemostasis noted. Small bowel was run to and fro ligament of Treitz to cecum 3 times. Th e colon inspected and noted to be normal, a large right renal mass appreciated. A sponge, needle cou nts were correct. Seprafilm was placed. Midline fascia closed with #1 PDS, skin with jhoan. Ster ile dressing applied. The patient tolerated the procedure well.
[2017-12-14] MEDS: Digoxin 0.5 MG/2 ML AMP SLOW IVP SCH ×2 (00:19→06:25)
[2017-12-14] MEDS: Sodium Chloride 0.9% 1,000 ML IV SCH ×3 (00:20→15:38)
[2017-12-14] MEDS: Ketorolac Tromethamine 30 MG/ML VIAL IVP SCH ×4 (00:20→17:51)
[2017-12-14] MEDS: Acetaminophen 1,000 MG in Premix Bag 1 BAG IVPB SCH ×4 (00:20→17:51)
[2017-12-14] MEDS: NS 0.9% w/ 20 MEQ KCL 1,000 ML/1,000 ML BAG IV SCH ×2 (03:15→15:38)
[2017-12-14 06:25] LABS: Anion Gap 18 mmol/L (10-20); BUN (Urea Nitrogen) 16 mg/dL (8.4-25.7); Calc. Creatinine Clearance 68 mL/min (70-130); Carbon Dioxide 17 mmol/L (23-31); Chloride 104 mmol/L (98-107); Estimated GFR-MDRD 83; Glucose 80 mg/dL (83-110); Potassium 3.9 mmol/L (3.5-5.1); Sodium 135 mmol/L (136-145)
[2017-12-14 06:56] LABS: Hemoglobin 12.4 g/dL (14.0-18.0); Mean Corpuscular HGB CONC 32.9 g/dL (32.0-36.0); Mean Corpuscular Hemoglobin 29.7 pg (27.0-31.0); Mean Corpuscular Volume 90.2 fL (78.0-98.0); Mean Platelet Volume 8.7 fL (7.4-10.4); Platelet Count 232 thou/uL (130-400); RBC Distribution Width 15.1 % (11.5-14.5); Red Blood Cell (RBC) Count 4.19 mill/uL (4.70-6.10); White Blood Cell (WBC) Count 2.7 thou/uL (4.8-10.8)
[2017-12-14 07:57] LABS: Band 60 % (5-11); Lymphocytes 5 % (21-51); MDiff Complete? YES; Metamyelocyte 1 % (0-0); Monocytes 3 % (0-10); Neutrophil 27 % (42-75); PLT Morphology Comment Appears Adequate; Reactive Lymphocytes 3 % (0-10); Reflex for Review?? YES; Vacuoles SLIGHT
[2017-12-14] MEDS ORDERED: Digoxin 0.125 MG TAB PO SCH (09:00)
--- NOTE | 2017-12-14 09:47 | PDOC.PN ---
- Subjective Encounter Start Date: 12/14/17 Encounter Start Time: 09:46 Mr. Arzate was seen today in follow-up of small bowel obstruction and renal mass. He says he is not hurting from the surgery, and in fact what bothers him most is " laying flat on my back, and this NG tube" - Objective Resuscitation Status: Resuscitation Status FULL:Full Resuscitation MAR Reviewed: Yes Vital Signs & Weight: Vital Signs (12 hours) Temp Pulse Resp BP Pulse Ox 12/14/17 08:17 98.1 F 114 H 16 123/70 100 12/14/17 08:00 96 12/14/17 06:25 112 H 12/14/17 04:25 98.7 F 114 H 18 118/70 100 12/14/17 03:15 120 H 12/14/17 00:19 120 H 12/13/17 23:40 100 Weight Weight 147 lb 8 oz I&O: 12/13/17 12/14/17 12/15/17 06:59 06:59 06:59 Intake Total 517 084 1823 Output Total 1100 700 Balance 582 -380 580 Result Diagrams: 12/14/17 05:30 12/14/17 05:30 Phys Exam - Physical Examination HEENT: PERRLA, sclera anicteric Respiratory: no wheezing, no rales, no rhonchi, clear to auscultation bilateral Cardiovascular: RRR, no rub 2/6 systolic murmur Gastrointestinal: soft, non-tender, no distention, positive bowel sounds Musculoskeletal: no edema Dx/Plan (1) Partial small bowel obstruction Status: Acute (2) Renal mass, right Code(s): N28.89 - OTHER SPECIFIED DISORDERS OF KIDNEY AND URETER Status: Acute (3) Pre-syncope Status: Acute (4) Atrial fibrillation Code(s): I48.91 - UNSPECIFIED ATRIAL FIBRILLATION Status: Acute (5) Coronary artery disease Code(s): I25.10 - ATHSCL HEART DISEASE OF [place] CORONARY ARTERY W/O ANG PCTRS Status: Chronic (6) Hypertension Code(s): I10 - ESSENTIAL (PRIMARY) HYPERTENSION Status: Chronic - Plan * Small Bowel Obstruction- he is s/p surgery to relieve the obstruction, and biopsies were sent * Renal Mass- await the pathology from the lymph node, and tumor found in the small bowel- will determine if this is consistent with renal cell carcinoma * AFIB- Heart rate is a bit elevated- will continue Digoxin IV * HTN- blood pressure is controlled * CAD- stable
[2017-12-14] MEDS: Aspirin 81 mg Enteric Coated Tablet PO SCH (09:49)
[2017-12-14] MEDS: Pantoprazole 40 MG VIAL IVP SCH (09:49)
--- NOTE | 2017-12-14 12:16 | CON ---
DATE OF CONSULTATION: 12/14/2017 HISTORY OF PRESENT ILLNESS: This is a 77-year-old gentleman status post lap, being conside red regarding multiple lung nodules. The patient has been in the hospital here now for several days. Yesterday he underwent a laparotomy with bowel resection. He was found to have a large right renal mass and a small-bowel obstruction, w hich was resected. He is presently in the [facility]. He is a former smoker, quit smoking in 1999, a pack a day for many years. No history of TB, pneumonia or asthma. Has lost about 20 pounds. PAST MEDICAL HISTORY: Pertinent for apparently lupus diagnosed, history of hypertension, coronary ar dona disease, atrial fibrillation, hypertension, history of possible TIA. PAST SURGICAL HISTORY: Bypass in 2006, cataract, ablation, recent lap. MEDICATIONS: His chronic medication included prednisone which he discontinued about 2 weeks ago, met oprolol 50 mg a day, Plaquenil 200 twice a day, Microzide 12.5 eyedrops, Lipitor 40, aspirin, Eliquis 5 mg twice a day. ALLERGIES: None. 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 REVIEW OF SYSTEMS: Otherwise, 10-point negative. PHYSICAL EXAMINATION: VITAL SIGNS: Blood pressure is 123/70, sats 96%, respirations 16, pulse 115, temperature 98. CHEST: Chest revealed decreased breath sounds without any wheezing. CARDIAC: Normal S1, S2, no gallops. ABDOMEN: Soft. No masses. LABORATORY: White count 2.7, H&H 12 and 37, platelet count 232, 60 bands, 27 neutrophils. Electroly geoff are normal. His chest x-ray shows a central line with no obvious acute infiltrates. CT abdomen and pelvis [facility] shows the previously noted small-bowel obstruction. A 7 cm right renal mass. Questionable left lower lobe pulmonary nodule, adrenal metastatic disease seen. IMPRESSION: 1. Status post lap, small-bowel obstruction. 2. Metastatic cancer found to be renal. 3. Tobacco abuse. 4. Coronary artery disease. 5. Atrial fibrillation. 6. Possibly lupus. PLAN: When patient is stable, may consider doing a CT of his chest. Otherwise, continue antibiotics , supportive care. We will follow while in the [facility]. This is a consultation note, 70 minutes, of which 50% spent in direct patient care.
--- NOTE | 2017-12-14 13:37 | CON ---
DATE OF CONSULTATION: 12/14/2017 REASON FOR CONSULTATION: Kidney and small intestinal mass. HISTORY OF PRESENT ILLNESS: A 77-year-old male with atrial fibrillation, coronary artery d isease, hypertension presenting with extreme lightheadedness. The patient states he has lost 20 poun ds in the last couple of months and in the last few weeks he got much more fatigued and was having tr ouble getting out of bed and feeling extremely lightheaded and feeling faint. He thought these sympt oms were due to his atrial fibrillation as he would also have some palpitations. He was diagnosed wi th atrial fibrillation in June of this year and has had radiofrequency ablation. The patient also c omplains of abdominal discomfort and feeling bloated and had not had a bowel movement in several days . He denied any blood in the stool or any hematuria. The patient had a positive hello Cologuard geoff t and was trying to schedule a colonoscopy prior to this admission. This has not been done. The pat ient states he smoked a pack of cigarettes per day for 40 years and quit in 2005. He states his moth er had breast cancer, but otherwise no family history of cancer. 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 He denies any fevers or drenching night sweats. The patient is very bothered by his NG tube and this is his main c omplaint today as he states he otherwise feels well after surgery yesterday. The patient was seen by Dr. Rascon who did a surgery and intraoperatively it was noticed the patient had an approximate 12 c m right renal mass consistent with findings on previous CT scan, extensive lymphadenopathy, a high gr carlos manuel small-bowel obstruction with a segmental small bowel tumor. No abnormalities were appreciated in the colon on gross evaluation. A mesenteric node and a biopsy of a mesenteric implant removed durin g surgery and sent to pathology. REVIEW OF SYSTEMS: Ten point review of systems negative except as per HPI. PAST MEDICAL HISTORY: Heavy smoker, coronary artery disease, atrial fibrillation, hypertension, high cholesterol, and SLE. PAST SURGICAL HISTORY: Coronary artery bypass, cataract surgery and radiofrequency ablation for atri al fibrillation. ALLERGIES: No known drug allergies. SOCIAL HISTORY: Former smoker, 40 pack years. He is with 1 child. Occasional alcohol. FAMILY HISTORY: Breast cancer in mother, otherwise heavy family history of coronary artery disease. CURRENT MEDICATIONS: Reviewed. PHYSICAL EXAMINATION: VITAL SIGNS: Temperature 98.1, pulse 114, respirations 16, saturating 100% on room air, blood pressu re 123/70. GENERAL: The patient is lying in bed in no acute distress with NG tube present and set to suction dr verduzco out dark red fluid. HEENT: Normocephalic, atraumatic. NG tube in place. No scleral icterus. NECK: No lymphadenopathy. LUNGS: Clear to auscultation bilaterally. CARDIOVASCULAR: Irregular rhythm, normal S1, S2 and a 2/6 systolic ejection murmur. ABDOMEN: Soft, nondistended, minimally tender to palpation. The patient is status post recent surge ry. EXTREMITIES: No edema. NEUROLOGIC: Cranial nerves II-XII are intact and otherwise nonfocal exam. PSYCHIATRIC: The patient is awake, alert, and oriented x3. LABORATORY DATA: White blood cells 8.6 on admission, today 2.7, hemoglobin 15.9 on admission, curren tly 12.4, platelets 232. Sodium 135, BUN 16, creatinine 0.89. CEA 2.30. IMAGING DATA: CT abdomen and pelvis with contrast dated 12/13/2017, high grade small-bowel obstructi on, 11.1 cm lower pole right renal mass which appears to be solid. This is associated with pathologi c appearing adenopathy in the right renal hilar region. There is also a small, but abnormally adriana us nodes in the aortocaval and periaortic region and some slightly prominent rounded mesenteric nodes , questionable left lower lobe pulmonary nodules. Findings suspicious for adrenal metastatic disease . Given the large right renal lesion, these changes are probably on the basis of renal cell carcinom a. ASSESSMENT AND PLAN: A 77-year-old male presenting with SBO and found to have a large righ t renal mass with local extension. The patient is status post surgery and bowel resection for small- bowel obstruction and lymph nodes and implants were referred to pathology for evaluation. The patien t likely has stage IV renal cell carcinoma based on scans and surgical findings. Would recommend CT of the chest to complete staging. This patient did have some indeterminate nodules seen in the lower lungs on CT of the abdomen and pelvis. We will follow up final pathology results and CT scan of the chest and the patient can follow up with me as an outpatient for treatment recommendations. I will continue to follow. Thank you for this consult.
--- NOTE | 2017-12-14 14:42 | CON ---
DATE OF CONSULTATION: 12/14/2017 UROLOGY INPATIENT CONSULTATION REASON FOR CONSULTATION: Right renal mass. REQUESTING PHYSICIAN: Hospitalist Service. 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 The azar harvey had a near syncopal episode at home. He did not feel safe driving to the hospital and therefor e, he called EMS. Leading up to this, the patient states he has had a history of atrial fibrillation . He has had several ablations for this in the past. He has a history of coronary artery disease an d a previous CABG in 2006. Over the past 3-4 months, he has also had gastrointestinal issues. He st ates he has had abnormal bowel movements. He has had the urge to have a bowel movement, but they hav e been scant and he feels like he has a large amount of residual. Over the past few days, he has had significant nausea and vomiting as well as weakness. When he presented to the emergency department, abdominal x-rays suggested obstruction. A CT scan of the abdomen and pelvis was performed with cont rast which demonstrated findings of small-bowel obstruction as well as a 12 cm lower pole enhancing r ight renal mass with hilar lymphadenopathy, retroperitoneal lymphadenopathy and left lower lobe lung nodules in the base. There was also some other retroperitoneal lymphadenopathy around the aorta. Th e patient was evaluated by General Surgery and was elected to have an exploratory laparotomy and this was performed. There was some mesenteric implants noted and one of these was resected for tissue di agnosis. The patient also had a central line placed. Urology has been consulted for further evaluat ion. Currently, the patient reports feeling better. He reports incisional abdominal pain. He is not pass ing flatus at this time. NG tube output has been significant. No additional nausea or vomiting. He denies any unexpected weight loss. No gross hematuria. No voiding complaints or lower urinary trac t symptoms. No family history of genitourinary malignancy. He has no other complaints at this time. REVIEW OF SYSTEMS: Full 12-point review of systems was performed and is negative other than that men tioned in the HPI. PAST MEDICAL HISTORY: 1. Coronary artery disease. 2. Atrial fibrillation. PAST SURGICAL HISTORY: 1. No abdominal surgeries. 2. CABG. MEDICATIONS: See medicine reconciliation form. This was reviewed and there are no changes. The pat jordy does take Eliquis, but this is currently being held. ALLERGIES: No known drug allergies. FAMILY HISTORY: Noncontributory. SOCIAL HISTORY: The patient is . He currently lives in [place], [place]. 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 PHYSICAL EXAMINATION: VITAL SIGNS: Temperature is 99.2, heart rate 97, blood pressure 126/71, respirations 16, oxygen satu ration 100% on room air. GENERAL: He is alert and oriented x3, no apparent distress. HEENT: Normocephalic, atraumatic. NECK: Supple, no masses or lymphadenopathy. CARDIOVASCULAR: Regular rate and rhythm. PULMONARY: Breathing unlabored. ABDOMEN: Soft, appropriately tender to palpation, moderately distended, surgical dressings in place clean/dry/intact, fullness to right flank. EXTREMITIES: Warm and well perfused. No edema. NEUROLOGIC: No focal deficits. RADIOLOGY DATA: CT abdomen and pelvis performed on 12/13/2017 demonstrates high grade small-bowel ob struction at 11.5 cm lower pole right renal mass which appears to be solid, and significant right yahir al hilar lymphadenopathy as well as some aortocaval lymphadenopathy also questionable left lower lobe pulmonary nodules. There was also question of possible adrenal metastasis as well. LABORATORY DATA: White blood cell count 2.7, hemoglobin 12.4, hematocrit 37.8, platelets 232. Sodiu m 135, potassium 3.9, chloride 104, bicarbonate 17, BUN 16, creatinine 0.89. ASSESSMENT: A 77-year-old male with high grade small-bowel obstruction, large enhancing right renal mass, retroperitoneal lymphadenopathy, lung nodules, adrenal mass, all concerning for metastatic luis armando l cell carcinoma. PLAN: I discussed the natural history and clinical implications of enhancing renal masses with the p atient in detail. I also discussed the fact that it appears the patient does have metastatic disease . Pathology is pending on a mesenteric implant. If this is confirmed to be renal cell carcinoma, I discussed various treatment options. Oncology has evaluated the patient. He will likely require vasquez motherapy. Role of reductive nephrectomy at this time is limited given his high grade small-bowel ob struction and recent exploratory laparotomy. This would also be a very technically challenging proce dure given his extensive hilar and aortocaval lymphadenopathy. If the patient responds well to targe calli therapy, sideward active nephrectomy could be considered in the future. This was all discussed w ith the patient. He indicates he may seek a second opinion at [facility] once he is stable here and I explained that this would be appropriate as there may be some study protocols available. We will await pathology to confirm that this indeed is metastatic renal cell carcinoma. There is no indicati on for urologic intervention at this time. Thank you for allowing me to participate in the care of this patient.
[2017-12-14] MEDS ORDERED: ISOVUE-370 76%-LOCM 1 ML ONE (14:51)
--- NOTE | 2017-12-14 14:53 | PRG ---
DATE OF SERVICE: 12/14/2017 SUBJECTIVE: Wood Arzate underwent segmental small bowel resection yesterday. This is either inflamm atory bowel disease or probably adenocarcinoma of small bowel. Pathology pending. He underwent biop sy of mesenteric lymphadenopathy and biopsy of implants. He was noted to have a large right renal ma ss consistent with his CAT scan more than 12 cm. He has metastatic renal cell carcinoma. Oncology h as been consulted. This morning, his NG tube is putting out very little. OBJECTIVE: LUNGS: Clear to auscultation. CARDIAC: Regular rate and rhythm without murmur or gallop. ABDOMEN: Soft, mildly distended, tympanitic. EXTREMITIES: Few bowel sounds are present. LABORATORY DATA: White count 2.7, hemoglobin 12.4. Sodium 135, BUN 16, creatinine 0.89. ASSESSMENT AND PLAN: 1. Metastatic renal cell carcinoma, 2. High grade partial bowel obstruction either from regional enteritis unlikely primary cancer to th e small bowel, unlikely metastasis (not fitting with gross evaluation intraoperatively). Await patho logy results. At this point, his NG tube has put out very little and remove his NG tube. Continue n .p.o., ice chips, await better bowel function.
--- NOTE | 2017-12-14 16:34 | CON ---
DATE OF SERVICE: 12/14/2017 SUBJECTIVE: Mr. Arzate recently was admitted for bowel obstruction and atrial fibrillation with RVR. He was found to have likely mass suggesting cancer. From a CV standpoint, his heart rate is stable in the 90s-100s. No current complaints. He recently underwent abdominal surgery yesterday. He was seen and evaluated on IMCU. PHYSICAL EXAMINATION: VITAL SIGNS: Blood pressure 126/71, pulse 90, temperature 99.2. LUNGS: Crackles noted at bases, minimal. HEART: Irregular regular with a 2/6 systolic ejection murmur. ABDOMEN: Decreased bowel sounds. EXTREMITIES: 1+ pitting edema. PERTINENT LABORATORY DATA: Hemoglobin 12.4, creatinine 0.89. IMPRESSION: 1. Atrial fibrillation with rapid ventricular response. 2. Moderate aortic stenosis. 3. Cancer of unknown etiology. 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 We will await biopsy results . If we felt to be renal cell cancer, may discuss with Oncology on the use of novel oral anticoagula tion therapy and risk of bleeding.
--- NOTE | 2017-12-14 17:45 | CT ---
CT THORAX WITH IV CONTRAST: Date: 12/14/17 HISTORY: Renal mass. Metastatic cancer. COMPARISON: CT abdomen on 12/13/17. FINDINGS: There has been interval development of small bilateral pleural effusions and associated passive atele ctasis. The left lower lobe pulmonary nodule noted on the CT abdomen is again seen on this examinatio n, but there is significant motion artifact through this region which limits adequate evaluation. No additional discrete pulmonary nodule or mass is seen bilaterally. Postsurgical changes related to CABG are noted. The heart is mildly enlarged. Vascular calcifications are seen in the coronary arteries. There is calcification in the region of the aortic valve. The asc ending thoracic aorta is ectatic, measuring 4.0 cm. No aortic dissection is visualized. There are enlarged mediastinal lymph nodes present. The largest lymph node is seen in a precarinal lo cation which measures 1.5 cm in short axis dimension. There is a mildly increased density prevascular space lymph node identified measuring 1.1 cm in short axis dimension, as well as a right paramediast inal lymph node seen also measuring approximately 1.1 cm in short axis dimension. Soft tissue density is seen in the left hilar region, and there is an enlarged lymph node seen adjacent to the left pulm onary artery which demonstrates a heterogeneous appearance and measures 1.5 cm in short axis dimensio n. Mediastinal lymphadenopathy, especially given the heterogeneous lymph node, may be related to meta static disease. No enlarged axillary lymph nodes are appreciated. There is an eccentric area of soft tissue density seen within the upper thoracic trachea measuring 1. 0 cm. This cannot be further characterized on this exam. The lymphadenopathy in the upper abdomen noted on prior CT abdomen is again seen on this study. There is now free intraperitoneal gas, as well as a small amount of intraperitoneal free fluid in the upper abdomen, with partial visualization of skin clips in the midline, likely related to recent abd ominal surgery. Degenerative changes are seen in the spine. No lytic or sclerotic osseous lesions are appreciated. There is a left subclavian central venous catheter in place, terminating in the SVC. IMPRESSION: 1. Mediastinal and left hilar lymphadenopathy with heterogeneous lymph node seen in the left hilar r egion adjacent to the pulmonary artery which may represent a necrotic lymph node. Findings are worris ome for metastatic disease given the bulky lymphadenopathy in the abdomen, as well as given large rig ht renal mass. 2. Interval development of small bilateral pleural effusions and atelectasis. 3. Free intraperitoneal gas and free fluid, likely attributable to recent abdominal surgery. 4. Mild cardiomegaly. 5. The left lower lobe pulmonary nodule noted on the CT abdomen is again seen on this examination, b ut there is significant motion artifact through this region which limits adequate evaluation. No rody tional pulmonary nodules are seen throughout the remainder of the lungs bilaterally. 6. Mild peribronchial thickening involving right lower lobe bronchi suggesting inflammatory process. 7. Abnormal appearance of each adrenal gland, with slight heterogeneity and suggestion of small mass es associated with each adrenal gland, which are difficult to further characterize on this exam. POS: KARUNA
--- NOTE | 2017-12-14 19:04 | PRG ---
DATE OF SERVICE: 12/14/2017 SUBJECTIVE: Mr. Arzate is feeling okay this afternoon. He is requiring some IV analgesia for postop erative abdominal pain, no nausea at this time. Surgical pathology is still pending. A CT of the est today demonstrated mediastinal and left hilar lymphadenopathy worrisome for metastatic disease as well as abnormal appearance of each adrenal gland with heterogeneity and suggestion of small masses. OBJECTIVE: VITAL SIGNS: Temperature 98.7, pulse 103, blood pressure 118/73, 97% oxygen saturation on room air. GENERAL: No acute distress. HEART: Regular, borderline tachycardia. LUNGS: Clear to auscultation bilaterally. ABDOMEN: Midline incision is well dressed. Nontender to palpation. Bowel sounds are absent. EXTREMITIES: No peripheral edema. LABORATORY STUDIES: WBC 2.7, hemoglobin 12.4, platelets 232. Sodium 135, potassium 3.9, BUN 16, cre atinine 0.89. CEA only 2.3. ASSESSMENT AND PLAN: 1. High grade small-bowel obstruction, status post segmental small bowel resection performed yesterd ay by Dr. Rascon. Awaiting surgical pathology. It is unclear whether this small-bowel obstruction w as secondary to a mass or inflammatory process. 2. Large renal mass. 3. Metastatic disease to the abdomen and thorax. I discussed all the findings with the patient. I had initially seen him in evaluation for positive C ologuard test when he was only minimally symptomatic just a week or two ago. We had planned on outpa tient colonoscopy, but obviously this ought to be delayed. I appreciate the assistance of Dr. Rascon as well as the Oncology team. I will follow along for the results of the pathology peripherally, bu t otherwise no new recommendations from a GI standpoint today. We will have him follow up in clinic with me in the next couple of months, and I anticipate by then he will have a good treatment plan sor calli out for what appears to be metastatic malignancy. Please call any time with questions or concerns.
[2017-12-14] MEDS ORDERED: Enoxaparin Sodium 40 MG/0.4 ML SYRINGE SC SCH (21:00)
[2017-12-14] MEDS ORDERED: TRAVOPROST EA EYE SCH (21:45)
[2017-12-14] MEDS ORDERED: COMBIGAN EA EYE SCH (21:45)
[2017-12-15] MEDS: Acetaminophen 1,000 MG in Premix Bag 1 BAG IVPB SCH ×5 (00:44→23:56)
[2017-12-15] MEDS: Ketorolac Tromethamine 30 MG/ML VIAL IVP SCH ×5 (00:44→23:56)
[2017-12-15] MEDS: Sodium Chloride 0.9% 1,000 ML IV SCH ×3 (00:53→14:43)
[2017-12-15 06:13] LABS: #Lymphocytes 0.3 thou/uL (1.20-3.40); #Monocytes 0.4 thou/uL (0.11-0.59); #Neutrophils 2.5 thou/uL (1.40-6.50); %Basophils 0.6 % (0.0-1.0); %Eosinophils 0.8 % (0.0-10.0); %Lymphocytes 10.3 % (21.0-51.0); %Monocytes 12.6 % (0.0-10.0); %Neutrophils 75.6 % (42.0-75.0); Hemoglobin 10.8 g/dL (14.0-18.0); Mean Corpuscular Hemoglobin 28.7 pg (27.0-31.0); Mean Corpuscular Volume 89.6 fL (78.0-98.0); Mean Platelet Volume 8.4 fL (7.4-10.4); Platelet Count 218 thou/uL (130-400); RBC Distribution Width 15.2 % (11.5-14.5); Red Blood Cell (RBC) Count 3.75 mill/uL (4.70-6.10); White Blood Cell (WBC) Count 3.3 thou/uL (4.8-10.8)
[2017-12-15 06:31] LABS: Anion Gap 10 mmol/L (10-20); BUN (Urea Nitrogen) 24 mg/dL (8.4-25.7); Calc. Creatinine Clearance 55 mL/min (70-130); Calcium 7.9 mg/dL (7.8-10.44); Carbon Dioxide 22 mmol/L (23-31); Chloride 108 mmol/L (98-107); Estimated GFR-MDRD 65; Glucose 83 mg/dL (83-110); Potassium 3.9 mmol/L (3.5-5.1); Sodium 136 mmol/L (136-145)
[2017-12-15] MEDS ORDERED: Digoxin 0.5 MG/2 ML AMP SLOW IVP SCH (09:00)
--- NOTE | 2017-12-15 09:01 | PRG ---
DATE OF SERVICE: 12/15/2017 SUBJECTIVE: A 77-year-old gentleman status post lap for small-bowel obstruction with metastatic dise ase. He is having some difficulty breathing. OBJECTIVE: VITAL SIGNS: Sats are 93% on room air, temperature 97, blood pressure 123/80. CHEST: No wheezing or crackles. CARDIAC: Normal S1, S2. No gallops. ABDOMEN: Soft, no masses. LABORATORY DATA: Electrolytes are normal. White count 3000, H&H is 10 and 30, platelet count 218. IMPRESSION: Metastatic cancer, severe deconditioning, multiple lung nodules. PLAN: Continue antibiotics as per Surgery. Pulmonary will follow while in the IMCU. At this stage, no reason to do any additional workup in the lung nodules.
--- NOTE | 2017-12-15 10:03 | PDOC.PN ---
- Subjective Encounter Start Date: 12/15/17 Encounter Start Time: 10:01 Mr. Arzate was seen today in follow-up of Renal mass and ileus. He is feeling better today. He does not have much pain, no nausea or vomiting. - Objective Resuscitation Status: Resuscitation Status FULL:Full Resuscitation MAR Reviewed: Yes Vital Signs & Weight: Vital Signs (12 hours) Temp Pulse Resp BP Pulse Ox 12/15/17 07:33 97.8 F 99 13 125/80 93 L 12/15/17 04:26 97.5 F L 83 25 H 123/68 99 12/15/17 00:39 97.6 F 84 26 H 111/59 L 98 Weight Weight 147 lb 8 oz I&O: 12/14/17 12/15/17 12/16/17 06:59 06:59 06:59 Intake Total 720 2985 0 Output Total 1100 1250 Balance -380 1735 0 Result Diagrams: 12/15/17 05:45 12/15/17 05:45 Phys Exam - Physical Examination HEENT: PERRLA Respiratory: no wheezing, no rales, no rhonchi, clear to auscultation bilateral Cardiovascular: no rub, irregular 3/6 systolic murmur no gallop Gastrointestinal: soft, positive bowel sounds mildly distended Musculoskeletal: no edema Dx/Plan (1) Partial small bowel obstruction Status: Acute (2) Renal mass, right Code(s): N28.89 - OTHER SPECIFIED DISORDERS OF KIDNEY AND URETER Status: Acute (3) Pre-syncope Status: Acute (4) Atrial fibrillation Code(s): I48.91 - UNSPECIFIED ATRIAL FIBRILLATION Status: Acute (5) Coronary artery disease Code(s): I25.10 - ATHSCL HEART DISEASE OF [place] CORONARY ARTERY W/O ANG PCTRS Status: Chronic (6) Hypertension Code(s): I10 - ESSENTIAL (PRIMARY) HYPERTENSION Status: Chronic - Plan * Partial Small bowel obstruction- s/p exploratory lap- he will be advanced to a clear liquid diet today * Renal Mass- awaiting pathology result from the biopsy of the small bowel implant * AFIB- his heart rate is stable- awaiting path results, anticoagulation will be entertained at that time * HTN- blood pressure is controlled. * CAD- stable
--- NOTE | 2017-12-15 10:06 | PDOC.CTH ---
Cardiology Progress Note - Subjective Doing better overall. NGT removed. No complaints. HR controlled. - Objective Vital Signs Temp Pulse Resp BP Pulse Ox 12/15/17 07:33 97.8 F 99 13 125/80 93 L 12/15/17 04:26 97.5 F L 83 25 H 123/68 99 12/15/17 00:39 97.6 F 84 26 H 111/59 L 98 Weight 147 lb 8 oz 12/14/17 12/15/17 12/16/17 06:59 06:59 06:59 Intake Total 720 2985 0 Output Total 1100 1250 Balance -380 1735 0 - Physical Examination General/Neuro: alert & oriented x3, NAD Neck: no JVD present Lungs: CTA, unlabored respirations - Telemetry Telemetry Rhythm: IRR - Labs Result Diagrams: 12/15/17 05:45 12/15/17 05:45 Troponin/CKMB Troponin I 0.151 ng/mL (< 0.028) H 12/13/17 02:01 - Assessment/Plan afib Tumor of unknonw etiology Moderate CV status stable restarted BB Recommend restarting ACT when ok with GS Will need to discuss strategy of ACT depending on pathology
[2017-12-15] MEDS: Pantoprazole 40 MG VIAL IVP SCH (10:37)
[2017-12-15] MEDS: COMBIGAN EA EYE SCH ×2 (10:39→20:56)
[2017-12-15] MEDS ORDERED: Acetaminophen 500 MG TAB PO PRN (12:18)
[2017-12-15] MEDS ORDERED: traMADol HCl 50 MG TAB PO PRN ×2 (12:18)
[2017-12-15] MEDS ORDERED: Ibuprofen 600 MG TAB PO PRN (12:18)
--- NOTE | 2017-12-15 12:31 | PRG ---
DATE OF SERVICE: 12/15/2017 HISTORY OF PRESENT ILLNESS: Wood Arzate is doing well. He is in the Intermediate Care area. His heart rate is 85. He is awake and alert. He has tolerated his NG tube removal last night. Path ology is pending. He has passed flatus, has not had any nausea or vomiting. OBJECTIVE: VITAL SIGNS: 98.4, heart rate 101 to 112, 154/86. HEENT: Unremarkable. LUNGS: Clear to auscultation. ABDOMEN: Soft, bowel sounds present. Surgical wound looks good. Dressing removed. ASSESSMENT AND PLAN: 1. Small bowel pathology pending, suspect this may be either regional enteritis or primary cancer of the small bowel. Await pathology. 2. Renal cell carcinoma, 12 cm mass, metastasis perihilar lymphadenopathy, periaortic and mesenteric lymphadenopathy and implants. 3. Left lower lobe nodule. 4. Atrial fibrillation gaining medical control. 5. Patient has a history of bladder outlet obstructive symptoms at home, nocturia was worsening, str anguria worsening. He has had problems postoperatively voiding since the catheter has been removed. He has voided in 50-100 meal increments. At this point, we will start Flomax. Urology consultation has been ordered. Dr. Sampson is covering this weekend. Expect his diet to be advanced slowly. I will need to see him i n my office in about a week to 10 days for staple removal. The patient can shower and bathe. He can be up in a chair and ambulating.
[2017-12-15] MEDS ORDERED: Tamsulosin HCl 0.4 MG CAP PO SCH (12:45)
[2017-12-15] MEDS: Tamsulosin HCl 0.4 MG CAP PO SCH ×2 (14:21→20:55)
[2017-12-15] MEDS: TRAVOPROST EA EYE SCH (20:56)
[2017-12-15] MEDS: Latanoprost 0.005% Ophth Soln 2.5 ml Bottle EA EYE SCH (20:57)
[2017-12-15] MEDS: Timolol 0.5% Ophth Soln 5 ml Bottle EA EYE SCH (20:58)
[2017-12-15] MEDS: Brimonidine Tartrate 0.2% Ophth Soln 5 ml Bottle EA EYE SCH (20:58)
[2017-12-16] MEDS: Sodium Chloride 0.9% 1,000 ML IV SCH ×2 (03:59→13:54)
[2017-12-16] MEDS: Ketorolac Tromethamine 30 MG/ML VIAL IVP SCH ×3 (05:31→16:15)
--- NOTE | 2017-12-16 09:24 | PDOC.PN ---
- Subjective Encounter Start Date: 12/16/17 Encounter Start Time: 09:23 Mr. Arzate was seen today in follow-up of partial small bowel obstruction. He says he is beginning to feel more bloated. He denies any pain however, and has been able to tolerate a full liquid diet so far. - Objective Resuscitation Status: Resuscitation Status FULL:Full Resuscitation MAR Reviewed: Yes Vital Signs & Weight: Vital Signs (12 hours) Temp Pulse Resp BP BP Pulse Ox 12/16/17 07:57 98.5 F 98 18 142/89 H 99 12/16/17 04:00 98.2 F 96 15 138/95 H 97 12/15/17 23:55 97.3 F L 98 20 130/82 96 Weight Weight 147 lb 8 oz I&O: 12/15/17 12/16/17 12/17/17 06:59 06:59 06:59 Intake Total 2985 450 Output Total 1250 400 Balance 1735 50 Result Diagrams: 12/15/17 05:45 12/15/17 05:45 Phys Exam - Physical Examination HEENT: PERRLA Respiratory: no wheezing, no rales, no rhonchi, clear to auscultation bilateral Cardiovascular: RRR, no significant murmur, no rub Gastrointestinal: soft, non-tender, positive bowel sounds + mildly distended Musculoskeletal: no edema Dx/Plan (1) Partial small bowel obstruction Status: Acute (2) Renal mass, right Code(s): N28.89 - OTHER SPECIFIED DISORDERS OF KIDNEY AND URETER Status: Acute (3) Pre-syncope Status: Acute (4) Atrial fibrillation Code(s): I48.91 - UNSPECIFIED ATRIAL FIBRILLATION Status: Acute (5) Coronary artery disease Code(s): I25.10 - ATHSCL HEART DISEASE OF [place] CORONARY ARTERY W/O ANG PCTRS Status: Chronic (6) Hypertension Code(s): I10 - ESSENTIAL (PRIMARY) HYPERTENSION Status: Chronic - Plan * Partial Bowel Obstruction- s/p exploratory lap- resolving- continue to advance diet as tolerated * Renal Mass- awaiting the results of pathology * AFIB- his heart rate is stable- Metoprolol, and Eliquis have been re-started * HTN- blood pressure is stable * Urinary Retention- improving- he says he was able to void this morning * Increase ambulation .
[2017-12-16] MEDS: Hydrochlorothiazide 25 MG TAB PO SCH (09:31)
[2017-12-16] MEDS: Digoxin 0.125 MG TAB PO SCH (09:31)
[2017-12-16] MEDS: Tamsulosin HCl 0.4 MG CAP PO SCH ×2 (09:32→20:51)
[2017-12-16] MEDS: Polyethylene Glycol 3350 17 GM Packet PO SCH (09:32)
[2017-12-16] MEDS: Aspirin 81 mg Enteric Coated Tablet PO SCH (09:32)
[2017-12-16] MEDS: COMBIGAN EA EYE SCH ×2 (09:33→20:57)
[2017-12-16] MEDS: Timolol 0.5% Ophth Soln 5 ml Bottle EA EYE SCH ×2 (09:35→21:00)
[2017-12-16] MEDS: Brimonidine Tartrate 0.2% Ophth Soln 5 ml Bottle EA EYE SCH ×2 (09:35→20:59)
--- NOTE | 2017-12-16 16:15 | PDOC.CTH ---
Cardiology Progress Note - Subjective He gets very tachycardic with minimal exertion. - Objective Vital Signs Temp Pulse Resp BP BP Pulse Ox 12/16/17 11:55 97.9 F 99 20 140/85 95 12/16/17 09:35 98 12/16/17 09:31 98 12/16/17 07:57 98.5 F 98 18 142/89 H 99 12/16/17 07:46 95 Weight 147 lb 8 oz 12/15/17 12/16/17 12/17/17 06:59 06:59 06:59 Intake Total 2985 450 Output Total 1250 400 Balance 1735 50 - Physical Examination General/Neuro: alert & oriented x3, NAD Neck: no JVD present Lungs: unlabored respirations Heart: other: (Irregular) Abdomen: NT/ND Extremities: other: (no edema) - Telemetry Telemetry Rhythm: NSR - Labs Result Diagrams: 12/15/17 05:45 12/15/17 05:45 Troponin/CKMB Troponin I 0.151 ng/mL (< 0.028) H 12/13/17 02:01 - Assessment/Plan 1. afib 2. Tumor of unknonw etiology 3. Moderate PLAN: - CV status stable - Will up titrate BB - Restart Eliquis when safe from surgical standpoint.
--- NOTE | 2017-12-16 18:52 | PRG ---
DATE OF SERVICE: 12/16/2017 SUBJECTIVE: Wood Arzate is a 77-year-old male, hospital day #4, postop day #3 status post explorator y laparotomy, segmental small bowel resection and mesenteric node biopsy. Postoperatively, the patie nt continues to do well. He endorses having a bowel movement earlier today. He last passed flatus t his morning. His pain is controlled with p.o. analgesics. He has been transferred from the [facility] to the telemetry floor. Upon my evaluation, patient vocalized no complaint. OBJECTIVE: VITAL SIGNS: Temperature 97.9, pulse 99, respirations 20, O2 sat 95% on room air, blood pressure 140 /85. GENERAL: Elderly appearing male in no acute distress, resting in bed. PULMONARY: Normal work of breathing. Symmetric rise. CARDIOVASCULAR: Irregularly irregular. GASTROINTESTINAL: Abdomen is soft, mildly distended, tympanic to percussion. Very mildly tender. S urgical site is clean, dry, and intact. Caitie are in place. There is no erythema, fluctuance or e vidence of purulent drainage. MUSCULOSKELETAL: Moves all extremities x4. NEUROLOGIC: No focal deficit noted. LABORATORY DATA: WBC 3.3, hemoglobin 10.8, hematocrit 33.6, platelet count 218. Sodium 136, potassi um 3.9, chloride 108, carbon dioxide 22, BUN 24, creatinine 1.1, glucose 83. ASSESSMENT: 1. 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 2. Acute pain secondary to above. 3. Atrial fibrillation with rapid ventricular response. 4. Renal mass. 5. History of hypertension. 6. History of lupus. 7. History of obstructive urinary symptoms, now on Flomax. PLAN: Advance diet as tolerated. From a surgical standpoint, patient is safe to resume Eliquis. Th e patient should continue to mobilize as tolerated. Continue incentive spirometry and pulmonary toil eting. Await pathology results. Follow up with Urology and Oncology consultations. Plan of care wa s discussed with the patient at bedside and all questions were answered at the time of this dictation . The patient was discussed with surgical attending.
[2017-12-16] MEDS: Hydroxychloroquine Sulfate 200 MG TAB PO SCH (20:50)
[2017-12-16] MEDS: Apixaban 5 MG TAB PO SCH (20:52)
[2017-12-16] MEDS: Latanoprost 0.005% Ophth Soln 2.5 ml Bottle EA EYE SCH (20:59)
[2017-12-16] MEDS: TRAVOPROST EA EYE SCH (20:59)
--- NOTE | 2017-12-16 21:10 | PRG ---
DATE OF SERVICE: 12/16/2017 Mr. Wood Arzate is stable. This morning in the intermediate care unit, he was afebrile, heart rate w as in the 90s, respiratory rates in the 20s, oximetry is 95% on room air, blood pressure 140/85. He is scheduled to move out of the intermediate care unit to the telemetry unit. No workup is planned a t this time for the pulmonary nodules. His bowel pathology is still pending.
[2017-12-17 05:16] LABS: #Eosinphils 0.1 thou/uL (0.0-0.7); #Lymphocytes 0.7 thou/uL (1.20-3.40); #Monocytes 0.5 thou/uL (0.11-0.59); #Neutrophils 3.4 thou/uL (1.40-6.50); %Basophils 0.3 % (0.0-1.0); %Eosinophils 1.8 % (0.0-10.0); %Lymphocytes 15.4 % (21.0-51.0); %Monocytes 10.2 % (0.0-10.0); %Neutrophils 72.3 % (42.0-75.0); Hemoglobin 11.8 g/dL (14.0-18.0); Mean Corpuscular HGB CONC 32.1 g/dL (32.0-36.0); Mean Corpuscular Hemoglobin 28.7 pg (27.0-31.0); Mean Corpuscular Volume 89.3 fL (78.0-98.0); Mean Platelet Volume 8.1 fL (7.4-10.4); Platelet Count 241 thou/uL (130-400); Red Blood Cell (RBC) Count 4.12 mill/uL (4.70-6.10); White Blood Cell (WBC) Count 4.7 thou/uL (4.8-10.8)
[2017-12-17] MEDS: COMBIGAN EA EYE SCH ×2 (08:48→20:15)
[2017-12-17] MEDS: Apixaban 5 MG TAB PO SCH ×2 (08:49→20:12)
[2017-12-17] MEDS: Hydrochlorothiazide 25 MG TAB PO SCH (08:49)
[2017-12-17] MEDS: Digoxin 0.125 MG TAB PO SCH (08:49)
[2017-12-17] MEDS: Aspirin 81 mg Enteric Coated Tablet PO SCH (08:49)
[2017-12-17] MEDS: Hydroxychloroquine Sulfate 200 MG TAB PO SCH ×2 (08:49→20:13)
[2017-12-17] MEDS: Brimonidine Tartrate 0.2% Ophth Soln 5 ml Bottle EA EYE SCH ×2 (08:50→20:16)
[2017-12-17] MEDS: Polyethylene Glycol 3350 17 GM Packet PO SCH (08:50)
[2017-12-17] MEDS: Timolol 0.5% Ophth Soln 5 ml Bottle EA EYE SCH ×2 (08:52→20:23)
[2017-12-17] MEDS: Tamsulosin HCl 0.4 MG CAP PO SCH ×2 (12:12→20:13)
--- NOTE | 2017-12-17 12:27 | PDOC.PN ---
- Subjective Encounter Start Date: 12/17/17 Encounter Start Time: 12:26 CC: Abdominal pain sub: pt says pain controlled - Objective Resuscitation Status: Resuscitation Status FULL:Full Resuscitation Vital Signs & Weight: Vital Signs (12 hours) Temp Pulse Resp BP Pulse Ox 12/17/17 12:05 97.4 F L 86 14 132/72 96 12/17/17 08:49 105 H 12/17/17 08:00 97.6 F 105 H 15 116/77 95 12/17/17 02:50 97.6 F 93 15 136/90 96 Weight Weight 153 lb 10.595 oz I&O: 12/16/17 12/17/17 12/18/17 06:59 06:59 06:59 Intake Total 450 1251 Output Total 400 2313 Balance 50 -1062 Result Diagrams: 12/17/17 05:06 12/15/17 05:45 Phys Exam - Physical Examination Constitutional: NAD HEENT: moist MMs Neck: no JVD Respiratory: no wheezing Cardiovascular: RRR, no significant murmur, no rub Gastrointestinal: soft, non-tender Musculoskeletal: no edema Neurological: non-focal Lymphatic: no nodes Dx/Plan - Plan Dx/Plan (1) Partial small bowel obstruction Status: Acute (2) Renal mass, right Code(s): N28.89 - OTHER SPECIFIED DISORDERS OF KIDNEY AND URETER Status: Acute (3) Pre-syncope Status: Acute (4) Atrial fibrillation Code(s): I48.91 - UNSPECIFIED ATRIAL FIBRILLATION Status: Acute (5) Coronary artery disease Code(s): I25.10 - ATHSCL HEART DISEASE OF [place] CORONARY ARTERY W/O ANG PCTRS Status: Chronic (6) Hypertension Code(s): I10 - ESSENTIAL (PRIMARY) HYPERTENSION Status: Chronic 7. Pulmonary nodules - Plan * Partial Bowel Obstruction- s/p exploratory lap- resolving- path pending continue to advance diet as tolerated * Renal Mass. workup in progress * AFIB- his heart rate is stable- Metoprolol, and Eliquis have been re-started * HTN- blood pressure is stable * Urinary Retention- improving * Pulmonary on board. Workup in progress * Increase ambulation case d/w pt & RN
--- NOTE | 2017-12-17 13:45 | PRG ---
DATE OF SERVICE: 12/17/2017 SUBJECTIVE: The patient is a 77-year-old man who is postoperative day number 4, status post explorat ory laparotomy and segmental small bowel resection, primary anastomosis. The patient reports adequat e pain control today. He is tolerating a diet. He reports passing flatus and had a small smear of l oose bowel movement yesterday. He has not ambulated quite well since yesterday. Today, he reports j ust feeling tired because he was unable to sleep last night. PHYSICAL EXAMINATION: VITAL SIGNS: Includes blood pressure 116/77, pulse is 105, respirations 15, temperature is 97.6 degr ees Fahrenheit, oxygen saturation is 95% on room air. ABDOMEN: Soft, moderately distended with gas. Incision is intact, clean and dry. He has good bowel sounds in all 4 quadrants. No peritoneal signs on examination. LABORATORY FINDINGS: Includes a CBC with 4700 white blood cells, hemoglobin and hematocrit of 11.8 a nd 36.8 respectively. Platelet count is 241,000. IMPRESSION: 1. Postoperative day number 4 status post exploratory laparotomy with segmental small bowel resectio n and biopsies. 2. Postoperative ileus. PLAN: 1. Increase activity as tolerated. 2. We will ask PM and R to evaluate the patient for possible inpatient rehabilitation post discharge . 3. Biopsy report is still pending.
--- NOTE | 2017-12-17 16:49 | PRG ---
DATE OF SERVICE: 12/17/2017 SUBJECTIVE: Mr. Arzate has no complaints. His vital signs are stable. I had an interesting convers ation with him about his employment with [employer]. OBJECTIVE: VITAL SIGNS: He is afebrile, heart rate is 86, respiratory rate is 14, oximetry is 96 on room air. LUNGS: Remarkable for mild rhonchi earlier. He reported chest congestion, but he said with some cou ghing and moving around, this got better. HEART: Regular rhythm. ABDOMEN: Soft. While he is laid up in bed, he may benefit from some Brovana twice a day, but other than that he appe ars to be stable at this time. Pathology is still pending.
--- NOTE | 2017-12-17 18:15 | PDOC.CTH ---
Cardiology Progress Note - Subjective No new issues. HR better while at rest, increases with any exertion. - Objective Vital Signs Temp Pulse Resp BP Pulse Ox 12/17/17 16:00 97.3 F L 105 H 14 122/87 96 12/17/17 12:05 97.4 F L 86 14 132/72 96 12/17/17 08:49 105 H 12/17/17 08:00 97.6 F 105 H 15 116/77 95 Weight 153 lb 10.595 oz 12/16/17 12/17/17 12/18/17 06:59 06:59 06:59 Intake Total 450 1251 Output Total 400 2313 Balance 50 -1062 - Physical Examination General/Neuro: alert & oriented x3, NAD Neck: no JVD present Lungs: unlabored respirations Heart: other: (irregular) Abdomen: NT/ND Extremities: other: (noedema) - Telemetry Telemetry Rhythm: Afib HR80's. - Labs Result Diagrams: 12/17/17 05:06 12/15/17 05:45 Troponin/CKMB Troponin I 0.151 ng/mL (< 0.028) H 12/13/17 02:01 - Assessment/Plan 1. afib 2. Tumor of unknown etiology 3. Moderate PLAN: - CV status stable - Continue current BB dose. - Eliquis back on board.
[2017-12-17] MEDS: Arformoterol 15 MCG/2 ML NEB NEB SCH (19:43)
[2017-12-17] MEDS: Latanoprost 0.005% Ophth Soln 2.5 ml Bottle EA EYE SCH (20:15)
[2017-12-17] MEDS: TRAVOPROST EA EYE SCH (20:15)
[2017-12-17] MEDS ORDERED: Atorvastatin Calcium 40 MG TAB PO SCH (21:00)
[2017-12-18] MEDS: Arformoterol 15 MCG/2 ML NEB NEB SCH ×2 (07:43→19:33)
[2017-12-18] MEDS: Hydrochlorothiazide 25 MG TAB PO SCH (08:24)
[2017-12-18] MEDS: Polyethylene Glycol 3350 17 GM Packet PO SCH (08:25)
[2017-12-18] MEDS: Digoxin 0.125 MG TAB PO SCH (08:25)
[2017-12-18] MEDS: Hydroxychloroquine Sulfate 200 MG TAB PO SCH ×2 (08:25→20:57)
[2017-12-18] MEDS: Brimonidine Tartrate 0.2% Ophth Soln 5 ml Bottle EA EYE SCH ×2 (08:25→20:57)
[2017-12-18] MEDS: Apixaban 5 MG TAB PO SCH ×2 (08:25→20:57)
[2017-12-18] MEDS: Aspirin 81 mg Enteric Coated Tablet PO SCH (08:25)
[2017-12-18] MEDS: COMBIGAN EA EYE SCH ×2 (08:27→20:56)
[2017-12-18] MEDS: Timolol 0.5% Ophth Soln 5 ml Bottle EA EYE SCH ×2 (08:27→21:00)
--- NOTE | 2017-12-18 10:06 | PRG ---
DATE OF SERVICE: 12/18/2017 Mr. Arzate is getting Brovana twice today. He said he has still got some congestion, but he is yas r. PHYSICAL EXAMINATION: VITAL SIGNS: Blood pressure is 121/77, sats 100% on room air, temperature 98, respirations 14. CHEST: No wheezing, no crackles. CARDIAC: Normal S1-S2. No gallops. ABDOMEN: Soft. No masses. IMPRESSION: 1. Status post lap for small-bowel obstruction. 2. Small pulmonary lung nodules. 3. Atrial fibrillation. PLAN: Await results of his path. Continue Brovana and supportive care.
--- NOTE | 2017-12-18 10:58 | PDOC.PN ---
- Subjective Encounter Start Date: 12/18/17 Encounter Start Time: 10:35 -: old records requested/rev Pt seen and examined, chart reviewed in its entirety. Danika noble first visit with this patient followup for abd mass, obstruction, POD 5 exploratory lab and mass resection. Pt jeanna diet, no N/V, passing flatus, no BM. No F/C, some nausea without vomiting, resolved. no diarrhea. No CP or SOB. all systems reviewed adn neg x as per hPI - Objective Resuscitation Status: Resuscitation Status FULL:Full Resuscitation MAR Reviewed: Yes Vital Signs & Weight: Vital Signs (12 hours) Temp Pulse Resp BP Pulse Ox 12/18/17 08:25 92 12/18/17 08:20 98.3 F 92 14 121/77 96 12/18/17 07:43 105 H 16 96 12/18/17 04:10 97.9 F 82 18 126/80 96 12/17/17 23:10 98.5 F 100 18 108/66 97 Weight Weight 153 lb 9.6 oz I&O: 12/17/17 12/18/17 12/19/17 06:59 06:59 06:59 Intake Total 1251 1200 Output Total 2313 1175 Balance -1062 25 Result Diagrams: 12/17/17 05:06 12/15/17 05:45 Radiology Reviewed by me: Yes EKG Reviewed by me: Yes Phys Exam - Physical Examination Constitutional: NAD HEENT: PERRLA, moist MMs, sclera anicteric, oral pharynx no lesions Neck: no nodes, no JVD, supple, full ROM Respiratory: no wheezing, no rales, no rhonchi, clear to auscultation bilateral Cardiovascular: RRR, no significant murmur, no rub Gastrointestinal: soft, positive bowel sounds nontender, some distension, mild tympany Musculoskeletal: no edema, pulses present Neurological: non-focal, normal sensation, moves all 4 limbs Lymphatic: no nodes Psychiatric: normal affect, A&O x 3 Skin: no rash, normal turgor, cap refill <2 seconds Dx/Plan (1) Atrial fibrillation Code(s): I48.91 - UNSPECIFIED ATRIAL FIBRILLATION Status: Acute Qualifiers: Atrial fibrillation type: chronic Qualified Code(s): I48.2 - Chronic atrial fibrillation (2) Partial small bowel obstruction Status: Resolved (3) Pre-syncope Status: Resolved (4) Renal mass, right Code(s): N28.89 - OTHER SPECIFIED DISORDERS OF KIDNEY AND URETER Status: Acute Comment: path still pending (5) Coronary artery disease Code(s): I25.10 - ATHSCL HEART DISEASE OF [place] CORONARY ARTERY W/O ANG PCTRS Status: Chronic Qualifiers: Coronary Disease-Associated Artery/Lesion type: [place] artery [place] vs. transplanted heart: [place] heart Associated angina: without angina Qualified Code(s): I25.10 - Atherosclerotic heart disease of [place] coronary artery without angina pectoris (6) Hypertension Code(s): I10 - ESSENTIAL (PRIMARY) HYPERTENSION Status: Chronic Qualifiers: Hypertension type: essential hypertension Qualified Code(s): I10 - Essential (primary) hypertension - Plan cont current plan of care, PT/OT, out of bed/ambulate * . follow up on surgery recs.
--- NOTE | 2017-12-18 13:40 | PRG ---
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 His metoprolol was increased to 100 mg 1 p.o. at bedtime over the weekend for better h eart rate control. PAST MEDICAL EXAMINATION: VITAL SIGNS: Blood pressure 108/56, pulse 95, temperature 97.7. LUNGS: Clear to auscultation. CARDIAC: Irregular, irregular. ABDOMEN: Soft, nontender, nondistended. EXTREMITIES: No edema. IMPRESSION: Atrial fibrillation. RECOMMENDATIONS: Heart rate appears to be controlled on metoprolol. May consider adding digoxin alix reji adding a calcium channel kong versus increasing beta kong therapy if needed. Otherwise, aw ait biopsies. No further recommendations.
[2017-12-18] MEDS: TRAVOPROST EA EYE SCH (20:56)
[2017-12-18] MEDS: Tamsulosin HCl 0.4 MG CAP PO SCH (20:57)
[2017-12-18] MEDS: Latanoprost 0.005% Ophth Soln 2.5 ml Bottle EA EYE SCH (20:58)
--- NOTE | 2017-12-19 00:02 | PRG ---
DATE OF SERVICE: 12/18/2017 SUBJECTIVE: Mr. Arzate is doing well. He is tolerating his diet. He has passed flatus. OBJECTIVE: VITAL SIGNS: Temperature 98.1 degrees, pulse 108, blood pressure 129/86. There is recorded bowel mo vement from yesterday. LUNGS: Clear to auscultation. CARDIAC: Regular rate and rhythm without murmur or gallop. ABDOMEN: Soft, nontender. Bowel sounds present. Surgical wound looks good. ASSESSMENT AND PLAN: Pathology reveals metastatic renal cell carcinoma pending, but consistent with renal cell carcinoma with papillary features. Dr. Woodard, Oncology has seen him and will see bert moncada as an outpatient. The patient is postoperative day #5. The patient feels weak and rehab consult h as been ordered. At this point, the patient is doing well, and jhoan can be removed early next wee k. The patient is stable for discharge from surgery standpoint. AFib is controlled. He is back on his anticoagulation. He should follow up in my office. If he goes to rehab, he had jhoan removed later this week, Monday or first of next week. We will start MiraLax daily. The patient has questio ns regarding targeted therapy. They only have to direct towards Oncology. The patient is safe for d ischarge to home or to rehab from a surgical standpoint.
[2017-12-19] MEDS: Arformoterol 15 MCG/2 ML NEB NEB SCH ×2 (06:54→18:50)
--- NOTE | 2017-12-19 07:20 | PDOC.CTH ---
Cardiology Progress Note - Subjective HR stable. No complaints. - Objective Vital Signs Temp Pulse Resp BP BP Pulse Ox 12/19/17 06:54 92 16 97 12/19/17 03:01 98 F 85 18 111/62 97 12/19/17 00:00 20 12/18/17 21:00 103 H 12/18/17 20:00 98.2 F 102 H 18 128/93 H 96 12/18/17 19:33 103 H 18 98 Weight 149 lb 9.6 oz 12/18/17 12/19/17 12/20/17 06:59 06:59 06:59 Intake Total 1200 240 Output Total 1175 200 Balance 25 40 - Physical Examination General/Neuro: alert & oriented x3, NAD Neck: carotid US brisk, no JVD present Lungs: CTA, unlabored respirations Heart: other: (IRR) Abdomen: no HSM, NT/ND, soft Extremities: + femoral B - Labs Result Diagrams: 12/17/17 05:06 12/15/17 05:45 Troponin/CKMB Troponin I 0.151 ng/mL (< 0.028) H 12/13/17 02:01 - Assessment/Plan afib Moderate Renal cell carcinoma Pt HR stable On ACT fu with CV and surgery and Oncology as outpaitnet No new CV recs Home anytime from CV standpoint
[2017-12-19] MEDS: Hydrochlorothiazide 25 MG TAB PO SCH (09:12)
[2017-12-19] MEDS: Digoxin 0.125 MG TAB PO SCH (09:12)
[2017-12-19] MEDS: Hydroxychloroquine Sulfate 200 MG TAB PO SCH ×2 (09:13→20:58)
[2017-12-19] MEDS: Aspirin 81 mg Enteric Coated Tablet PO SCH (09:13)
[2017-12-19] MEDS: Apixaban 5 MG TAB PO SCH ×2 (09:13→20:58)
[2017-12-19] MEDS: Polyethylene Glycol 3350 17 GM Packet PO SCH (09:16)
[2017-12-19] MEDS: COMBIGAN EA EYE SCH ×2 (09:17→20:56)
--- NOTE | 2017-12-19 13:35 | PRG ---
DATE OF SERVICE: 12/19/2017 SUBJECTIVE: Mr. Arzate is tolerating his regular diet, though appetite is still not back to normal. He is not having any abdominal pain. He went several days without a bowel movement, finally started having bowel movements last night, another loose stool this morning. His pathology finally came kenney k and this demonstrates that the cause of the small-bowel obstruction was metastatic renal cell cance r, also present in regional lymph nodes. OBJECTIVE: VITAL SIGNS: Temperature 98.4, pulse 89, blood pressure 123/76, 95% oxygen saturation on room air. GENERAL: No acute distress. HEART: Regular rate and rhythm. LUNGS: Clear to auscultation bilaterally. ABDOMEN: Bowel sounds are present, soft, some mild tenderness to palpation. No guarding, rebound te nderness. EXTREMITIES: No peripheral edema. ASSESSMENT AND PLAN: 1. Metastatic renal cell cancer. 2. Small-bowel obstruction secondary to metastatic renal cell cancer, status post partial small jonathan l resection. 3. Heme positive stool. I have discussed with Mr. Arzate that the cause of the small-bowel obstruct ion was metastasis from his renal cell carcinoma. It does not appear that he has any other primary g astrointestinal pathology such as primary small bowel tumor or Crohn's disease. He will be following up with Oncology for discussions of treatment of his metastatic renal cell carcinoma. [facility], and I understand arrangements for this are in process. We will put any plans for colonoscopy on hold. I will plan to see him back in clinic in the next 2-3 months to follow up and see when we might want to get this done, but obviously, his metastatic malig janine takes priority. GI will sign off. Please call any time with questions or concerns.
--- NOTE | 2017-12-19 14:35 | PDOC.PN ---
- Subjective Encounter Start Date: 12/19/17 Encounter Start Time: 09:10 follow up for SBO, renal mass. path returned with renal cell CA. pt to see Dr Woodard as an outpatient. pt wants to be evaluated at [facility], informed him it will likely be as an outpatient as they rarely take transfers no other complaints, awaiting approval adn bed availability at inpatient rehab No F/C, no N/V, large uncontrollable loose BM last night, pt soiled himself. no constipation, no CP or SOB. All systems reviewed and neg x as above - Objective Resuscitation Status: Resuscitation Status FULL:Full Resuscitation MAR Reviewed: Yes Vital Signs & Weight: Vital Signs (12 hours) Temp Pulse Pulse Pulse Resp BP BP 12/19/17 12:27 98.4 F 89 16 12/19/17 10:43 109 H 107 H 111/72 129/77 12/19/17 09:58 87 90 113/73 119/73 12/19/17 09:12 100 12/19/17 09:10 97.7 F 100 18 12/19/17 06:54 92 16 12/19/17 03:01 98 F 85 18 BP BP BP Pulse Ox 12/19/17 12:27 123/76 95 12/19/17 10:43 12/19/17 09:58 12/19/17 09:12 12/19/17 09:10 113/75 95 12/19/17 06:54 97 12/19/17 03:01 111/62 97 Weight Weight 149 lb 9.6 oz I&O: 12/18/17 12/19/17 12/20/17 06:59 06:59 06:59 Intake Total 1200 240 Output Total 1175 200 Balance 25 40 Result Diagrams: 12/17/17 05:06 12/15/17 05:45 Phys Exam - Physical Examination Constitutional: NAD HEENT: PERRLA, moist MMs, sclera anicteric, oral pharynx no lesions Neck: no nodes, no JVD, supple, full ROM Respiratory: no wheezing, no rales, no rhonchi, clear to auscultation bilateral Cardiovascular: no significant murmur, no rub, irregular Gastrointestinal: soft, non-tender, no distention, positive bowel sounds Musculoskeletal: no edema, pulses present Neurological: non-focal, normal sensation, moves all 4 limbs Lymphatic: no nodes Psychiatric: normal affect, A&O x 3 Skin: no rash, normal turgor, cap refill <2 seconds Dx/Plan (1) Atrial fibrillation Code(s): I48.91 - UNSPECIFIED ATRIAL FIBRILLATION Status: Acute Qualifiers: Atrial fibrillation type: chronic Qualified Code(s): I48.2 - Chronic atrial fibrillation (2) Partial small bowel obstruction Status: Resolved (3) Pre-syncope Status: Resolved (4) Renal mass, right Code(s): N28.89 - OTHER SPECIFIED DISORDERS OF KIDNEY AND URETER Status: Acute Comment: path still pending (5) Coronary artery disease Code(s): I25.10 - ATHSCL HEART DISEASE OF [place] CORONARY ARTERY W/O ANG PCTRS Status: Chronic Qualifiers: Coronary Disease-Associated Artery/Lesion type: [place] artery [place] vs. transplanted heart: [place] heart Associated angina: without angina Qualified Code(s): I25.10 - Atherosclerotic heart disease of [place] coronary artery without angina pectoris (6) Hypertension Code(s): I10 - ESSENTIAL (PRIMARY) HYPERTENSION Status: Chronic Qualifiers: Hypertension type: essential hypertension Qualified Code(s): I10 - Essential (primary) hypertension (7) Renal cell carcinoma Code(s): C64.9 - MALIGNANT NEOPLASM OF UNSP KIDNEY, EXCEPT RENAL PELVIS Status : Acute Qualifiers: Laterality: right Qualified Code(s): C64.1 - Malignant neoplasm of right kidney, except renal pelvis Comment: with met to small bowl and mesenteric LN. 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
--- NOTE | 2017-12-19 17:29 | PRG ---
DATE OF SERVICE: 12/19/2017 SUBJECTIVE: Mr. Arzate's discharge is pending Medicare approval for rehabilitation stay. He has had a bowel movement. He is tolerating his diet. OBJECTIVE: LUNGS: Clear to auscultation. CARDIAC: Regular rate and rhythm without murmur or gallop. ABDOMEN: Soft, nontender. VITAL SIGNS: Temperature 98.4 degrees, heart rate 89, 123/76. PATHOLOGY: Metastatic renal cell carcinoma from the right kidney with a 12 cm tumor mass with multip le peritoneal mesenteric implants and lymphadenopathy with a near completely obstructive small bowel metastatic tumor replacing the segment of small bowel. The patient is doing well status post small b owel resection. He is ready for discharge from a surgery standpoint. Caitie can be removed Monday this week or Monday.
[2017-12-19] MEDS: Tamsulosin HCl 0.4 MG CAP PO SCH (20:57)
[2017-12-19] MEDS: TRAVOPROST EA EYE SCH (20:57)
[2017-12-20 05:31] LABS: Calc. Creatinine Clearance 82 mL/min (70-130); Estimated GFR-MDRD Greater than 90
[2017-12-20 05:37] LABS: Hemoglobin 10.7 g/dL (14.0-18.0); Platelet Count 274 thou/uL (130-400)
[2017-12-20] MEDS: Arformoterol 15 MCG/2 ML NEB NEB SCH (07:26)
[2017-12-20] MEDS ORDERED: Furosemide 40 MG TAB PO SCH (09:15)
--- NOTE | 2017-12-20 09:15 | PDOC.CTH ---
Cardiology Progress Note - Subjective felt SOB last pm. BM yesterday. - Objective Vital Signs Temp Pulse Resp BP Pulse Ox 12/20/17 07:45 97.8 F 90 18 123/74 95 12/20/17 07:27 95 12/20/17 04:00 97.4 F L 88 18 110/71 95 12/20/17 00:00 18 Weight 147 lb 8 oz 12/19/17 12/20/17 12/21/17 06:59 06:59 06:59 Intake Total 240 150 Output Total 200 425 Balance 40 -275 - Physical Examination General/Neuro: alert & oriented x3, NAD Neck: carotid US brisk, no JVD present Lungs: other: (minimal crackles at bases) Heart: other: (irr) Abdomen: no HSM, NT/ND Extremities: + femoral B - Labs Result Diagrams: 12/20/17 04:50 12/20/17 04:50 Troponin/CKMB Troponin I 0.151 ng/mL (< 0.028) H 12/13/17 02:01 - Assessment/Plan afib Moderate Renal cell carcinoma discussed NOAC with Dr. Woodard. small risk of hemmorhage. Higher risk of CVA from afib. Also discussed with pt One dose lasix Ok to rehab today
[2017-12-20] MEDS: Apixaban 5 MG TAB PO SCH (09:32)
[2017-12-20] MEDS: Hydrochlorothiazide 25 MG TAB PO SCH (09:32)
[2017-12-20] MEDS: Aspirin 81 mg Enteric Coated Tablet PO SCH (09:33)
[2017-12-20] MEDS: Digoxin 0.125 MG TAB PO SCH (09:33)
[2017-12-20] MEDS: Hydroxychloroquine Sulfate 200 MG TAB PO SCH (09:33)
[2017-12-20] MEDS: COMBIGAN EA EYE SCH (09:34)
[2017-12-20] MEDS: Polyethylene Glycol 3350 17 GM Packet PO SCH (09:34)
[2017-12-20 12:38] VITALS: TEMP 97.4
[2017-12-20 17:05] VITALS: BP 108/67
== END 2017-12-20 17:16 | DRG 330 ==
LOC: ERS 13:29 → 2SW 18:36 → OBSVTOIN 12-13 16:33 → IMCU/EMU 12-13 23:22 → 2NO 12-16 11:06
PROVIDERS: ADMIT Internal Medicine; ATTEND Internal Medicine
PROC: 0DBV0ZX Excision of Mesentery, Open Approach, Diagnostic (ICD-10-PCS; principal; 2017-12-13)
PROC: 0DB80ZZ Excision of Small Intestine, Open Approach (ICD-10-PCS; 2017-12-13)
DX: K56.600 Partial intestinal obstruction, unspecified as to cause (principal); C64.9 Malignant neoplasm of unspecified kidney, except renal pelvis; I48.92 Unspecified atrial flutter; I48.91 Unspecified atrial fibrillation; R55 Syncope and collapse; I25.10 Atherosclerotic heart disease of native coronary artery without angina pectoris; Z87.891 Personal history of nicotine dependence; E86.0 Dehydration; M32.9 Systemic lupus erythematosus, unspecified; N28.89 Other specified disorders of kidney and ureter; R91.1 Solitary pulmonary nodule; R59.1 Generalized enlarged lymph nodes; D49.0 Neoplasm of unspecified behavior of digestive system; I35.0 Nonrheumatic aortic (valve) stenosis; Z86.73 Personal history of transient ischemic attack (TIA), and cerebral infarction without residual deficits; M06.9 Rheumatoid arthritis, unspecified; E78.5 Hyperlipidemia, unspecified; Z79.899 Other long term (current) drug therapy; Z79.82 Long term (current) use of aspirin; Z79.01 Long term (current) use of anticoagulants; Z79.52 Long term (current) use of systemic steroids; R33.9 Retention of urine, unspecified; I10 Essential (primary) hypertension
CPT/HCPCS: 36415; 36416; 71045; 71260; 74019; 74177; 80048; 80053; 80061; 81003; 81015; 82378; 82565; 83735; 83880; 84484; 85014; 85018; 85025; 85049; 85060; 86850; 86900; 86901; 88307; 88309; 88341; 88342; 93005; 94640; 94760; 96360; 96361; A4216; C9113; G8978-GP-CK; G8979-GP-CI; G8987-GO-CJ; G8988-GO-CI; J0131; J0360; J1100; J1160; J1650; J1885; J2001; J2185; J2405; J2704; J3010; J7050

== ENCOUNTER 2018-01-05 07:07 | Outpatient (CLI) | payer MEDICARE, BC ==
--- NOTE | 2018-01-05 09:00 | ULT ---
ABDOMINAL ULTRASOUND: DATE: 01/05/2018. HISTORY: Elevated bilirubin. COMPARISON: 12/13/2017. FINDINGS: There is distention of the gallbladder with nonshadowing echogenic material layering within the depen dent portion of the gallbladder likely related to tumefactive sludge. No gallbladder calculi are see n. There is no gallbladder wall thickening present. The common duct measures 0.65 cm in diameter. There is evidence of intrahepatic biliary ductal dilatation primarily involving the central hepatic b ile ducts with only minimal dilatation of the more peripheral hepatic ducts. The exact etiology is d ifficult to determine on this exam. The limited visualized portions of the pancreas and visualized portions of the IVC demonstrate a norm al sonographic appearance. The right kidney is enlarged measuring 14.4 cm x 8.4 cm. As noted on prior CT scan examination, ther e is a large cystic and solid mass involving the inferior pole right kidney which is likely related t o neoplastic process such as renal cell carcinoma. IMPRESSION: 1. Large inferior pole cystic and solid right renal mass also seen on prior CT scan examination and worrisome for renal cell carcinoma. 2. Mild dilatation of the common duct measuring 0.65 cm, but there is evidence of intrahepatic bilia ry ductal dilatation which was not present on prior CT examination. The exact etiology for biliary o bstruction is uncertain based on this exam. 3. Distention of the gallbladder with echogenic material within the gallbladder lumen probably relat ed to tumefactive sludge. No gallbladder calculi are seen, and there is no gallbladder wall thickeni ng. POS: [facility]
== END 2018-01-05 07:08 | disposition home or self-care (01) ==
LOC: ULT 07:07
PROVIDERS: ATTEND Specialist
DX: C64.9 Malignant neoplasm of unspecified kidney, except renal pelvis (principal); R17 Unspecified jaundice; Q61.9 Cystic kidney disease, unspecified; N28.89 Other specified disorders of kidney and ureter; K82.8 Other specified diseases of gallbladder; K83.8 Other specified diseases of biliary tract
CPT/HCPCS: 76705

== ENCOUNTER 2018-01-05 10:28 | Inpatient (IN) | payer MEDICARE, BC ==
[2018-01-05 11:43] VITALS: BMI 18.6
[2018-01-05] MEDS ORDERED: Ondansetron ODT 4 MG TAB PO PRN (12:18)
[2018-01-05] MEDS ORDERED: Ondansetron HCl/PF 4 MG/2 ML Vial IVP PRN (12:18)
[2018-01-05] MEDS ORDERED: Acetaminophen 500 MG TAB PO PRN (12:26)
[2018-01-05] MEDS ORDERED: Sodium Chloride 0.9% 1,000 ML IV SCH (12:30)
--- NOTE | 2018-01-05 12:46 | HP ---
HISTORY OF PRESENT ILLNESS: Mr. Arzate is a 77-year-old male with metastatic renal cell carcinoma. He has a large 12-15 cm inferior right renal pole mass. He suffered a bowel obstruction and recent h ospitalization underwent 12/13/2017 laparotomy, resection of a metastatic focus obstructing the small bowel. Postoperatively, he has done well. He saw Dr. Woodard Oncology yesterday. He was felt to be very weak. The patient experienced malaise and clinically jaundiced. Liver function test obtained y esterday revealed a sodium 132, creatinine 1.85, BUN 828, bilirubin 6.5, direct bilirubin 5, AST, ALT elevated 105 and 63 respectfully, alkaline phosphatase 772. The patient underwent an ultrasound tod ay revealing a small amount of sludge in the gallbladder. A new finding of mildly dilated intrahepat ic ducts, extrahepatic duct 6 mm. With his large right renal mass and metastasis renal cell would wo rry about extrinsic or compression of the common bile duct, possibly choledocholithiasis. We will ad robe him, hydrate him, give him intravenous antibiotics. Consult Dr. Akhil Vasquez interventional radiology technologist for Gastroent erology to consider ERCP. He last took his Eliquis yesterday morning approximately 30 hours ago. We will hold that for now. We will hydrate him. ALLERGIES: None. TOBACCO: None. ALCOHOL: None. PAST MEDICAL HISTORY: Atrial fibrillation on Eliquis, last received yesterday morning, followed Dr. Ulises Coughlin. MEDICATIONS: Eyedrops, metoprolol 50 mg at bedtime, Plaquenil 200 mg b.i.d., hydrochlorothiazide 12. 5 a day, Lipitor 40 mg a day, aspirin 81 mg a day, Eliquis 5 mg b.i.d., last took yesterday morning, 30 hours ago. PAST SURGICAL HISTORY: Coronary bypass grafting in 2010. Never has had a colonoscopy. Echocardiogram normal earlier this year 60-65%, chemical stress test 53% ejection fraction, cardiac a blation for atrial fibrillation in the past. REVIEW OF SYSTEMS: Otherwise, noncontributory. PHYSICAL EXAMINATION: VITAL SIGNS: Height 5 foot 11, 133 pounds, 18 BMI, 96.9, 18, 109/58. LUNGS: Clear to auscultation. CARDIAC: Regular rate and rhythm without murmur or gallop. ABDOMEN: Soft. Palpable mass right abdomen. Otherwise, abdomen is soft, nondistended. EXTREMITIES: Unremarkable. LABORATORY: As noted above. ASSESSMENT AND PLAN: 1. Metastatic renal cell carcinoma seeing Dr. Woodard for evaluation. Oral chemotherapy probably lanie cated. 2. Jaundiced possible extrahepatic ductal dilatation, but common bile duct is reported as normal wit h no findings by ultrasound of intrahepatic ductal dilatation new since the past CAT scan. We will g et GI's opinion. There is no clinical evidence for acute cholecystitis. We will start Levaquin and hold Eliquis and await GI opinion. 3. Atrial fibrillation. Recent cardiac stress test negative. Normal echocardiogram. 4. I talked to the patient's yesterday. The patient wishes to be a DNR. He wants to continue considerations for oral chemotherapy for his metastatic renal cell carcinoma, but desires DNR status. He does not want intubation or ventilation or CPR.
--- NOTE | 2018-01-05 15:13 | RAD ---
RADIOGRAPH CHEST 1 VIEW: Date: 01/05/18 Time: 1432 hours HISTORY: 77-year-old male with metastatic cancer. FINDINGS: There are no air space densities, pulmonary edema, pneumothorax, or cardiomegaly. The lateral costop hrenic angles are sharp. There is no interval change since 12/13/17. Left central line. Sternotomy wires, IMPRESSION: 1. No acute cardiopulmonary findings. 2. Left subclavian central venous catheter. 3. Status post open heart surgery. jesse [] POS: [facility]
--- NOTE | 2018-01-05 16:26 | OP ---
PREOPERATIVE DIAGNOSIS: Poor IV access, dehydration, biliary obstruction. POSTOPERATIVE DIAGNOSIS: Poor IV access, dehydration, biliary obstruction. PROCEDURE: Left subclavian vein triple lumen catheter. SURGEON: Pacheco Rascon M.D. ANESTHESIA: 1% Xylocaine. PROCEDURE: At the patient's bedside, after informed consent, left periclavicular area was prepared w ith ChloraPrep, draped in routine fashion. Local anesthetic infiltrated into skin and subcutaneous t issue. Trocar catheter was used to cannulate the subclavian vein infraclavicular approach, obtaining good return of venous blood. J-wire threaded. Trocar catheter removed. Skin incised and enlarged sharply. Seldinger technique used to place a triple lumen catheter, removed the J-wire, securing the catheter with 3-0 silk and sterile dressing applied. Each port filled with blood, flushed with sali ne solution and packed. The patient tolerated the procedure well.
[2018-01-05] MEDS: Sodium Chloride 0.9% 1,000 ML IV SCH ×2 (17:31→22:01)
--- NOTE | 2018-01-05 19:55 | MRI ---
MR OF THE ABDOMEN WITHOUT CONTRAST: 01/05/18 INDICATION: 77-year-old male with increased LFTs and abdominal pain. History of metastatic renal cancer. COMPARISON: CT of the abdomen and pelvis dated 12/13/17. FINDINGS: Since the comparison examination there has been marked dilatation of the intrahepatic and extrahepati c biliary ductal system with prominent dilatation of the common bile duct measuring up to 1.5 cm. The re is a short segment tapering of the mid to distal common bile duct at the level of the pancreatic h ead without discernible mass. Distal aspect of the common bile duct is normal in caliber within the r egion of the pancreatic head. The main pancreatic duct is normal in caliber without evidence of gross dilatation. There is layered sludge within the gallbladder. There is some mild wall thickening invol ving the gallbladder. There is a small amount of pericholecystic edema. There is a large partially cystic, partially solid mass involving the inferior pole of the right kidn ey, better detailed on the CT evaluation. This measures 11.5 x 8 cm. There are enlarged right retrope ritoneal lymph nodes seen adjacent to the IVC measuring 2.9 and 2.4 cm respectively. There is new mild left hydronephrosis which is nonspecific. Nodular prominence of the adrenals glands appears similar to the comparison examination. No definite bone marrow signal abnormality is grossly demonstrated. IMPRESSION: 1. Interval development of marked dilatation of intrahepatic and extrahepatic biliary ducts with a short segment area of tapering involving the mid to distal CBD which is nonspecific. No visible ma ss or lymphadenopathy is grossly evident within this region. This may reflect an obstructing intralum inal process such as impacted gallbladder sludge or stones. There is MR findings suspicious for acute cholecystitis with associated layered gallbladder sludge, gallbladder wall edema, as well as pericho lecystic fluid. 2. Large right renal malignancy. 3. Interval development of mild left hydronephrosis is nonspecific. 4. Malignant lymphadenopathy of the upper right retroperitoneum. 5. Nonspecific, nodularity of both adrenal glands may reflect adenomas versus metastatic disease . POS: [facility]
[2018-01-05] MEDS ORDERED: TRAVATAN 0.004% EA EYE SCH (21:00)
[2018-01-05] MEDS ORDERED: Latanoprost 0.005% Ophth Soln 2.5 ml Bottle EA EYE SCH (21:00)
[2018-01-05] MEDS: Timolol 0.5% Ophth Soln 5 ml Bottle EA EYE SCH (21:48)
[2018-01-05] MEDS: Hydroxychloroquine Sulfate 200 MG TAB PO SCH ×2 (21:48→21:53)
[2018-01-05] MEDS: Famotidine 20 MG TAB PO SCH (21:48)
[2018-01-05] MEDS: Brimonidine Tartrate 0.2% Ophth Soln 5 ml Bottle EA EYE SCH (21:50)
--- NOTE | 2018-01-05 22:59 | OP ---
PREOPERATIVE DIAGNOSIS: Poor IV access, metastatic renal cell carcinoma, jaundice, not a vailable as the patient has been waiting for hours in need of IV access for a while. PROCEDURE: Left subclavian vein triple lumen catheter. SURGEON: Pacheco Rascon M.D. ANESTHESIA: 1% Xylocaine. PROCEDURE: At the patient's bedside, his left periclavicular area was prepared with ChloraPrep, drap ed in routine fashion. Local anesthetic infiltrated into skin and subcutaneous tissue about the oper ative site. Left subclavian vein cannulated with an infraclavicular approach threading the J-wire, r emoving the trocar catheter. Seldinger technique used to place a triple lumen catheter securing it w ith 3-0 silk suture. Biopatch sterile dressing applied. J-wire had been removed. Each port aspirat ed blood and flushed with saline solution.
--- NOTE | 2018-01-05 23:48 | CON ---
GI INPATIENT CONSULTATION NOTE DATE OF CONSULTATION: 01/05/2018 REQUESTING PHYSICIAN: Dr. Pacheco Rascon M.D. REASON FOR CONSULTATION: Elevated LFTs. HISTORY OF PRESENT ILLNESS: Wood Arzate is a 77-year-old gentleman whom I met in clinic last month i n consultation for positive FOBT. He had never had a colonoscopy and we were planning on performing one; however, he presented to the hospital later that month with acute small-bowel obstruction. Imag ing demonstrated a right sided renal mass, multiple metastases throughout the multiple organs, and fo isael small-bowel obstruction. Dr. Rascon took him to the operating room and resected an ulcerated a s egment of small bowel, and pathology on this came back as metastatic renal cell carcinoma, as well as pathology from retroperitoneal implants. The patient has not undergone any chemotherapy as yet. On cology evaluation is ongoing. He sees Dr. Woodard, and had been planning to get to [facility] next mo nt. He feels he has been recovering from his small bowel resection fairly well. He does not deal w ith a lot of abdominal pain. However, his appetite has significantly declined and he has to meet abo ut 20% of his normal oral intake, though no dysphagia or nausea or vomiting. On recent lab work the other day, he was found to have a new elevation in LFTs. Total bilirubin is up to 6.5. This was nor mal just a couple of weeks ago. Alkaline phosphatase is 772, AST 105, ALT 63. Dr. Rascon got an abd ominal ultrasound on him and this shows a little bit of gallbladder sludge, but no gallbladder wall t hickening. Common bile duct is only 6.5 mm in diameter, though there is suggestion of a more proxima l intrahepatic biliary dilation. The patient again denies any right upper quadrant abdominal pain. He does say that he has had a couple of episodes of dark blood in the stool. REVIEW OF SYSTEMS: Full review of systems including constitutional, head, eyes, ears, nose, throat, GI, , cardiovascular, respiratory, musculoskeletal, and neurologic systems is negative except as no calli in the HPI. PAST MEDICAL HISTORY: Tobacco abuse, coronary artery disease, coronary artery bypass graft, atrial f ibrillation on Eliquis, hypertension, hyperlipidemia, SLE, metastatic renal cell carcinoma diagnosed , small bowel obstruction secondary to renal cell carcinoma metastasis, status post small bowel resection . ALLERGIES: No known drug allergies. OUTPATIENT MEDICATIONS: Metoprolol, Plaquenil, hydrochlorothiazide, Lipitor, aspirin 81 mg daily, El iquis 5 mg b.i.d. (last dose was yesterday morning). ALLERGIES: No known drug allergies. TOBACCO: None. ALCOHOL: None. PHYSICAL EXAMINATION: VITAL SIGNS: Temperature 96.9, pulse 94, blood pressure 109/58, 100% oxygen saturation on room air. GENERAL: Cachectic, chronically ill, but nontoxic appearing 77-year-old man lying in bed c omfortably, in no acute distress. SKIN: He is jaundiced, no rash visible or palpable. EYES: He has mild scleral icterus. Extraocular movements intact. ENT: Mucous membranes moist, no oral lesions. LYMPH: No submandibular, supraclavicular lymphadenopathy. THYROID: Nontender to palpation. HEART: Irregular rhythm. LUNGS: Clear to auscultation bilaterally. ABDOMEN: Nondistended. Multiple surgical scars all healing well. Bowel sounds are present, soft, n ontender to palpation throughout. EXTREMITIES: No peripheral edema. VESSELS: Radial pulses 2+ bilaterally. NEUROLOGICAL: Cranial nerves II-XII intact bilaterally. LABORATORY STUDIES: BUN 28, creatinine 1.85, this is up significantly from 1.2 couple of weeks ago. LDH 443. Total bilirubin up to 6.5, alkaline phosphatase 772, AST 105, ALT 63, albumin 3.1. I do n ot see a new CBC. From 12/25/2017, hemoglobin was 9.8, WBC 7.9, platelets 381. IMAGING STUDIES: Abdominal ultrasound shows gallbladder sludge, but no gallbladder wall thickening. Common bile duct is only 6.5 mm, but there is some mild intrahepatic biliary dilation. Chest x-ray shows no acute processes. ASSESSMENT AND PLAN: 1. Elevated liver function tests, acute, just over the past couple of weeks. 2. Gallbladder sludge, without ultrasound evidence of cholecystitis. 3. Possible mild intrahepatic biliary dilation. 4. Metastatic renal cell carcinoma. I had a long discussion with the patient and his regarding this new LFT elevation. Obviously, the primary concern would be metastatic involvement of the bile duct. The reason is not immediately clear on the ultrasound. The common bile duct is not really dil ated. Consider choledocholithiasis as well, but he again in the absence of pain. This is a little b it less likely. I would need further imaging before wanting to proceed with ERCP. We will go ahead and get an MRCP, and follow up results with the patient tomorrow. If the MRCP does indeed show a foc al area of biliary compromise that might be amenable to stenting by ERCP, then we could certainly con technical coordinator that. If it does not, then there may not really be anything to be gained by ERCP. In the longer view, if there is not a clear chemotherapeutic option which could possibly be curative and which he would tolerate medically, then I indeed think hospice consultation would be appropriate. The patient and his expressed understanding. We will follow up results of the MRCP with the patient tomorrow. Please call any time with questions or concerns.
[2018-01-06] MEDS: Sodium Chloride 0.9% 1,000 ML IV SCH (03:44)
[2018-01-06 07:29] VITALS: BP 126/63; TEMP 97.8
--- NOTE | 2018-01-06 09:01 | PRG ---
DATE OF SERVICE: 01/06/2018 SUBJECTIVE: Mr. Arzate had a bit of a rough night. He is having some diarrhea. He is feeling hungr y and also frustrated with his condition. Still no significant abdominal pain or nausea. OBJECTIVE: VITAL SIGNS: Temperature 97.8, pulse 95, blood pressure 126/63, 96% oxygen saturation on room air. GENERAL: Chronically ill, cachectic. HEART: Regular rate and rhythm. LUNGS: Clear to auscultation bilaterally. ABDOMEN: Bowel sounds are present, soft and nontender to palpation. EXTREMITIES: No peripheral edema. LABORATORY STUDIES: No new labs this morning. IMAGING STUDIES: MRCP was performed yesterday afternoon. I have reviewed the report and the images. He has marked intrahepatic and extrahepatic dilation of the bile duct. The common bile duct actual ly measures up to 1.5 cm. There is a short segment of tapering in the mid to distal common bile duct at the level of the pancreatic head without discernible mass, but the common bile duct is normal in caliber distal to this region. There is sludge within the gallbladder and a small amount of perichol ecystic edema, again visualized is his large right renal mass and nodularity of the adrenal glands as well as mild left hydronephrosis. ASSESSMENT AND PLAN: 1. Obstructive jaundice. 2. Elevated liver function tests, secondary to biliary obstruction. 3. Gallbladder sludge. 4. Metastatic renal cell carcinoma. I had a long discussion with the patient this morning in his ro om. The patient states that he has been thinking about this a lot, and that he would prefer to switc h goals of care to palliative measures only. He does not want to go through any more procedures. He wants to start discussing hospice options and he would like to leave the hospital today if possible. I frankly discussed with him that this is a reasonable choice, though if we do not take measures to relieve the biliary obstruction, I do expect his jaundice to get progressively worse and this could be quite rapid, it would also mean not considering any chemotherapy options. The patient expresses c lear understanding of this and he would like to shift measures toward hospice care. That being the c ase, we will not plan for any procedure today. He can have a regular diet. GI will sign off, but pl ease call back anytime with questions or concerns.
[2018-01-06] MEDS: Famotidine 20 MG TAB PO SCH (09:40)
[2018-01-06] MEDS: Hydroxychloroquine Sulfate 200 MG TAB PO SCH (09:40)
[2018-01-06] MEDS: Timolol 0.5% Ophth Soln 5 ml Bottle EA EYE SCH (09:41)
[2018-01-06] MEDS: Brimonidine Tartrate 0.2% Ophth Soln 5 ml Bottle EA EYE SCH (09:42)
--- NOTE | 2018-01-06 16:41 | DIS ---
DISCHARGE DIAGNOSIS: Metastatic renal cell carcinoma with biliary obstruction. PROCEDURES DURING ADMISSION: He had a central line placement. He is DNR. HOSPITAL COURSE: The patient has decided that he would like to just go home to hospice. He wants no further intervention. He asked to keep the central line in place for hospice use. We will discharg e him home on hydrocodone 10 mg p.o. q.6 hours p.r.n. He will follow up with his primary care physic
== END 2018-01-06 14:23 | disposition home or self-care (01) | DRG 686 ==
LOC: T4-B 10:50 → ONC 11:32
PROVIDERS: ADMIT Specialist; ATTEND Specialist
PROC: 05H633Z Insertion of Infusion Device into Left Subclavian Vein, Percutaneous Approach (ICD-10-PCS; principal; 2018-01-05)
DX: C79.01 Secondary malignant neoplasm of right kidney and renal pelvis (principal); K83.1 Obstruction of bile duct; Z66 Do not resuscitate; I48.91 Unspecified atrial fibrillation; Z79.01 Long term (current) use of anticoagulants; I25.10 Atherosclerotic heart disease of native coronary artery without angina pectoris; Z95.1 Presence of aortocoronary bypass graft; I10 Essential (primary) hypertension; E78.5 Hyperlipidemia, unspecified
CPT/HCPCS: 71045; 74181; 76705; 80053; 82248; 83615; 84100; 84550; J1956; J2405

== ENCOUNTER 2018-01-11 19:29 | Inpatient (IN) | payer MEDICARE, BC ==
[2018-01-11 20:50] LABS: Hemoglobin 6.1 g/dL (14.0-18.0); Mean Corpuscular Hemoglobin 31.1 pg (27.0-31.0); Mean Platelet Volume 7.4 fL (7.4-10.4); Platelet Count 323 thou/uL (130-400); RBC Distribution Width 23.4 % (11.5-14.5); Red Blood Cell (RBC) Count 1.96 mill/uL (4.70-6.10); White Blood Cell (WBC) Count 8.9 thou/uL (4.8-10.8)
[2018-01-11 21:09] LABS: ALT (SGPT) 53 U/L (8-55); AST (SGOT) 119 U/L (5-34); Albumin 2.2 g/dL (3.4-4.8); Alkaline Phosphatase 750 U/L (40-150); Anion Gap 15 mmol/L (10-20); BUN (Urea Nitrogen) 41 mg/dL (8.4-25.7); Calc. Creatinine Clearance 0 mL/min (70-130); Calcium 7.8 mg/dL (7.8-10.44); Carbon Dioxide 16 mmol/L (23-31); Chloride 106 mmol/L (98-107); Estimated GFR-MDRD 37; Globulin 2.5 g/dL (2.4-3.5); Glucose 104 mg/dL (83-110); Potassium 3.6 mmol/L (3.5-5.1); Protein, Total 4.7 g/dL (5.8-8.1); Sodium 133 mmol/L (136-145)
[2018-01-11 21:12] LABS: CKMB 2.8 ng/mL (0-6.6); Troponin I 0.173 ng/mL (< 0.028)
--- NOTE | 2018-01-11 21:16 | RAD ---
TWO VIEWS OF THE CHEST: 01/11/18 HISTORY: Shortness of breath. COMPARISON: 01/05/18. FINDINGS: A left subclavian central venous catheter remains in place and unchanged in position. Median sternoto my wires are again present. There is patchy parenchymal opacity seen in the left lower lobe, worrisom e for pneumonia. Lateral view is rotated which limits adequate evaluation, but there is probable smal l left pleural effusion present. The right lung appears clear. The cardiac silhouette is magnified by projection. The pulmonary vasculature is within normal limits. IMPRESSION: 1. Pneumonia left lower lobe. Followup to complete resolution is recommended. 2. Tiny left pleural effusion. POS: [facility]
[2018-01-11 21:17] LABS: Anisocytosis SLIGHT = 6-15 cells (100X) (0-5/hpf); Band 1 % (5-11); Eosinophils 1 % (0-10); Lymphocytes 7 % (21-51); MDiff Complete? YES; Monocytes 2 % (0-10); Neutrophil 89 % (42-75); PLT Morphology Comment Appears Adequate; Poikilocytosis SLIGHT = 6-15 cells (100X) (0-5/hpf); Polychromasia SLIGHT = 2-3 cells (100X) (0-2/hpf)
[2018-01-11] MEDS ORDERED: Ondansetron PF 4 MG/2 ML Vial IVP PRN (23:34)
[2018-01-12] MEDS ORDERED: Ondansetron ODT 4 MG TAB SL PRN (00:10)
[2018-01-12] MEDS ORDERED: Ondansetron PF 4 MG/2 ML Vial IVP PRN (00:10)
[2018-01-12] MEDS ORDERED: Acetaminophen 325 MG TAB PO PRN (00:10)
[2018-01-12] MEDS ORDERED: Sodium Chloride 0.9% 1,000 ML IV SCH ×2 (00:30→03:30)
[2018-01-12] MEDS ORDERED: Furosemide 20 MG/2 ML VIAL SLOW IVP SCH ×2 (00:30→17:30)
--- NOTE | 2018-01-12 01:11 | HP ---
DATE OF SERVICE: 01/11/2018 PRIMARY CARE PROVIDER: Tonny Laureano M.D. CHIEF COMPLAINT: Shortness of breath. HISTORY OF PRESENT ILLNESS: Mr. Arzate is a pleasant 77-year-old gentleman who was seen at [facility] on 01/12/2018. He was hospitalized at this facility from 01/05/2018-01/06/2018 for abnormal liver function tests. He was hospitalized under General Surgery Service. He was seen by Gastroenterology Service during this hospitalization. He has a history of renal cell cancer and concern was about metastasis to the liver. He decided to go home on hospice. He reports today that he is on home health, but not on hospice care yet. He developed shortness of breath on 01/11/2018. He was seen by his home health nurse and was told that he has "fluid on the lungs" and was advised to go to the emergency room. While in the emergency room, he reported that over the last several days he has been having bright red blood per rectum. He denies any abdominal pain. He denies any chest pain. He denies any fevers or chills. He denies any nausea or vomiting. REVIEW OF SYSTEMS: All other systems reviewed and found to be negative. PAST MEDICAL HISTORY: Coronary artery disease, transient ischemic attack, hypertension, dyslipidemia, atrial flutter, systemic lupus and metastatic renal cell carcinoma. PAST SURGICAL HISTORY: Status post radiofrequency ablation, coronary artery bypass graft surgery, cataract surgery, lens implant and bowel resection in 2017. The pathology report of the specimen showed metastatic carcinoma consistent with renal cell carcinoma with papillary features. FAMILY HISTORY: Significant for coronary artery disease in several family members. ALLERGIES: No known drug allergies. CURRENT MEDICATIONS: Plaquenil 200 mg 2 times a day, Travatan eyedrops once a day, aspirin 81 mg daily, metoprolol succinate 50 mg daily, hydrochlorothiazide 12.5 mg daily, Eliquis 5 mg 2 times a day and Lipitor 10 mg daily. SOCIAL HISTORY: No history of tobacco, alcohol or recreational drug use. CODE STATUS: I discussed his code status. He is DNR. PHYSICAL EXAMINATION: GENERAL: On examination, Mr. Arzate is awake and alert, not in acute distress. He appears tired. He also appears malnourished. VITAL SIGNS: Blood pressure is 110/72, pulse 120, respiratory rate 28, and oxygen saturation 98% on room air. He is afebrile. EYES: He has scleral icterus, he has conjunctival pallor. ENT: Moist mucosal membranes, no oropharyngeal erythema or exudates. NECK: Supple, nontender, trachea is midline. RESPIRATORY: Accessory muscles of breathing are mildly active. Chest wall movements are symmetric bilaterally. LUNGS: Clear to auscultation, without wheeze, rhonchi or crepitations. CARDIOVASCULAR: S1 and S2 are heard, tachycardic and regular. Peripheral pulses palpable. No carotid bruit, no pericardial rub. ABDOMEN: Soft, nontender, bowel sounds heard. Surgical site appears to be healing well. NEUROLOGIC: Cranial nerves II-XII intact. Deep tendon reflexes are 2+. MUSCULOSKELETAL: Power is 5/5 in all 4 extremities. SKIN: He has cutaneous icterus. No subcutaneous nodules. LYMPHATIC: No cervical lymphadenopathy. PSYCHIATRIC: Normal mood, normal affect, patient is oriented to person, place, and time. IMAGING DATA AND LABORATORY DATA: Mr. Arzate's labs and investigations were reviewed. I reviewed his electrocardiogram, which shows atrial fibrillation with rapid ventricular response. I also reviewed his chest x-ray, which appears to show left lower lobe infiltrate. He has a normal white count, elevated neutrophil percentage of 89%, normocytic anemia with hemoglobin 6.1, last known hemoglobin was 9.8 on 12/25/2017, normal platelet count, decreased sodium of 133, elevated blood urea nitrogen of 41, elevated creatinine of 1.78, last known creatinine 1.85 on 01/04/2018, elevated total bilirubin of 9.0, up from 6.5 on 01/04/2018, elevated AST of 119, it was 105 on 01/04/2018, normal ALT, elevated alkaline phosphatase of 750, it was 772 on 01/04/2018 and decreased albumin of 2.2. BNP is elevated at 970.4. Troponin I is indeterminate at 0.173. ASSESSMENT AND PLAN: Mr. Arzate is a pleasant 77-year-old gentleman who was seen at [facility] on 01/11/2018. His problem list includes: 1. Anemia of acute blood loss. Mr. Arzate is presenting with anemia of acute blood loss, most likely secondary to gastrointestinal bleed. He will be admitted to the hospital for further management. 2. Gastrointestinal bleed: Appears to be lower gastrointestinal bleed. We will transfuse packed RBCs. We will follow hemoglobin and hematocrit. We will hold Eliquis. We will consult Gastroenterology Service. 3. Pneumonia: Suspected, based on chest x-ray. We will start him on levofloxacin. 4. Metastatic renal cell cancer. Patient did not want any intervention, the last time he was hospitalized. We will request palliative care service consult to discuss goals of care. 5. Abnormal liver function tests: We will consult maintenance man Service for opinion and help with management. 6. Atrial fibrillation. We will hold Eliquis for now. We will control rate with calcium channel blockers as needed. We will also consult Cardiology Service about atrial fibrillation and about holding anticoagulation. Many thanks for allowing me to participate in your patient's care. Please feel free to contact me with any questions or concerns. LEVEL OF RISK: High. LEVEL OF COMPLEXITY: High. MTDD
[2018-01-12] MEDS ORDERED: Digoxin 0.5 MG/2 ML AMP SLOW IVP SCH (02:00)
[2018-01-12 04:37] LABS: Anion Gap 14 mmol/L (10-20); BUN (Urea Nitrogen) 42 mg/dL (8.4-25.7); Calc. Creatinine Clearance 31 mL/min (70-130); Calcium 7.8 mg/dL (7.8-10.44); Carbon Dioxide 20 mmol/L (23-31); Chloride 104 mmol/L (98-107); Estimated GFR-MDRD 35; Glucose 96 mg/dL (83-110); Potassium 3.5 mmol/L (3.5-5.1); Sodium 134 mmol/L (136-145)
[2018-01-12 05:34] LABS: #Basophils 0.1 thou/uL (0.0-0.2); #Eosinphils 0.1 thou/uL (0.0-0.7); #Lymphocytes 0.8 thou/uL (1.20-3.40); #Monocytes 0.8 thou/uL (0.11-0.59); #Neutrophils 6.7 thou/uL (1.40-6.50); %Basophils 0.8 % (0.0-1.0); %Eosinophils 1.4 % (0.0-10.0); %Lymphocytes 9.8 % (21.0-51.0); %Monocytes 8.9 % (0.0-10.0); %Neutrophils 79.3 % (42.0-75.0); Anisocytosis SLIGHT = 6-15 cells (100X) (0-5/hpf); Hemoglobin 7.6 g/dL (14.0-18.0); MDiff Complete? YES; Mean Platelet Volume 7.3 fL (7.4-10.4); Platelet Count 265 thou/uL (130-400); Polychromasia SLIGHT = 2-3 cells (100X) (0-2/hpf); Red Blood Cell (RBC) Count 2.44 mill/uL (4.70-6.10); White Blood Cell (WBC) Count 8.5 thou/uL (4.8-10.8)
[2018-01-12] MEDS ORDERED: D5 0.9% NS w/ 20 mEq KCl 1,000 ML IV SCH (08:45)
[2018-01-12] MEDS ORDERED: Metoprolol Tartrate 25 MG TAB PO SCH (09:00)
[2018-01-12 09:05] LABS: Magnesium 1.6 mg/dL (1.6-2.6)
[2018-01-12 09:26] LABS: ALT (SGPT) 53 U/L (8-55); AST (SGOT) 117 U/L (5-34); Albumin 2.3 g/dL (3.4-4.8); Alkaline Phosphatase 745 U/L (40-150); Bilirubin, Direct 7.9 mg/dL (0.1-0.3); Bilirubin, Total 10.1 mg/dL (0.2-1.2); Protein, Total 4.7 g/dL (5.8-8.1)
[2018-01-12] MEDS: Hydroxychloroquine Sulfate 200 MG TAB PO SCH ×2 (09:39→20:10)
[2018-01-12] MEDS: Metoprolol Tartrate 25 MG TAB PO SCH ×2 (09:40→20:07)
[2018-01-12] MEDS: Timolol 0.5% Ophth Soln 5 ml Bottle EA EYE SCH ×2 (09:42→20:48)
[2018-01-12] MEDS: Brimonidine Tartrate 0.2% Ophth Soln 5 ml Bottle EA EYE SCH ×2 (09:44→20:44)
[2018-01-12 10:09] LABS: Hemoglobin 7.4 g/dL (14.0-18.0); Platelet Count 289 thou/uL (130-400)
[2018-01-12] MEDS ORDERED: Dexamethasone 4 MG TAB PO SCH (12:00)
[2018-01-12 13:52] LABS: Hemoglobin 6.9 g/dL (14.0-18.0); Platelet Count 266 thou/uL (130-400)
[2018-01-12] MEDS ORDERED: GoLYTELY 4,000 ml Bottle PO SCH (18:00)
--- NOTE | 2018-01-12 19:16 | PDOC.PN ---
- Subjective Encounter Start Date: 01/12/18 Encounter Start Time: 11:00 Patient seen and examined for GI bleed. Hematochezia +. No new complaints. Overnight events noted - Objective Resuscitation Status: Resuscitation Status DNR:Do Not Resuscitate MAR Reviewed: Yes Vital Signs & Weight: Vital Signs (12 hours) Temp Pulse Pulse Resp BP BP BP 01/12/18 17:51 98.2 F 101 H 20 107/70 01/12/18 15:13 97.5 F L 96 20 99/64 01/12/18 12:00 98 90/64 01/12/18 11:37 97.5 F L 99 23 H 90/60 01/12/18 09:42 123 H 01/12/18 07:34 97.2 F L 114 H 26 H 110/67 Pulse Ox 01/12/18 17:51 100 01/12/18 15:13 100 01/12/18 12:00 01/12/18 11:37 92 L 01/12/18 09:42 01/12/18 07:34 100 Weight Admit Weight 142 lb 4 oz Weight 142 lb 4 oz I&O: 01/11/18 01/12/18 01/13/18 06:59 06:59 06:59 Intake Total 870 700 Output Total 725 550 Balance 145 150 Result Diagrams: 01/12/18 13:40 01/12/18 03:55 EKG Reviewed by me: Yes (Tele SR with intermittent Afib) Phys Exam - Physical Examination Constitutional: NAD Respiratory: no wheezing, no rhonchi Cardiovascular: RRR, no rub Gastrointestinal: soft, non-tender, positive bowel sounds Neurological: moves all 4 limbs Dx/Plan - Plan DVT proph w/SCDs 1. GI bleed with acute blood loss anemia Transfuse to keep Hb >7 NPO Gentle IV hydration Monitor HH 2. Afib with RVR Add low dose BB, Received Digoxin last night Not anticoag candidate due to GI bleed 3. LLL Pneumonia - ?Pneumococcal Cont Levaquin 4. JOHN on CKD 3 / Metabolic acidosis/hyponatremia/Hypomagnessemia Gentle hydration, Daily labs Replace Mg 5. Relative adrenal insufficiency - Start Dexamethasone 6. Renal CA with biliary obstruction causing abn LFTs / Moderate PEM / CAD s/p CABG / SLE / Other issues per H&P Review of Systems - Review of Systems Respiratory: negative: Cough, Dry, Shortness of Breath, Hemoptysis, SOB with Excertion, Pleuritic Pain, Sputum, Wheezing Cardiovascular: negative: chest pain, palpitations, orthopnea, paroxysmal nocturnal dyspnea, edema, light headedness, other - Medications/Allergies Allergies/Adverse Reactions: Allergies Allergy/AdvReac Type Severity Reaction Status Date / Time No Known Allergies Allergy Verified 01/12/18 01:34 Medications: Current Medications Brimonidine Tartrate (Alphagan 0.2% Oph Soln) 1 drop EA EYE BID [facility] Last Admin: 01/12/18 09:44 Dose: 1 drop Dexamethasone (Decadron) 2 mg PO BID-[facility] Famotidine (Pepcid) 20 mg PO 2100 [facility] Furosemide (Lasix) 20 mg SLOW IVP NOW [facility] Stop: 01/12/18 19:30 Last Admin: 01/12/18 17:50 Dose: 20 mg Hydroxychloroquine Sulfate (Plaquenil) 200 mg PO BID [facility] Last Admin: 01/12/18 09:39 Dose: 200 mg Levofloxacin 500 mg/ Device 100 mls @ 100 mls/hr IVPB Q24HR [facility] Last Admin: 01/12/18 01:17 Dose: 100 mls Potassium Chloride/Dextrose/Sod Cl (D5 0.9% Ns W/ 20 Meq Kcl) 1,000 mls @ 50 mls/hr IV .Q20H [facility] Latanoprost (Xalatan 0.005% Oph Soln) 1 drop EA EYE HS [facility] Metoprolol Tartrate (Lopressor) 12.5 mg PO BID [facility] Last Admin: 01/12/18 09:40 Dose: 12.5 mg Ondansetron HCl (Zofran) 4 mg IVP Q6H PRN PRN Reason: Nausea/Vomiting Polyethylene Glycol/Electrolytes (Golytely) 4,000 ml PO 1800 [facility] Stop: 01/12/18 23:59 Sodium Chloride (Flush - Normal Saline) 10 ml IVF PRN PRN PRN Reason: Saline Flush Timolol Maleate (Timoptic 0.5% Oph Soln) 1 drop EA EYE BID [facility] Last Admin: 01/12/18 09:42 Dose: 1 drop
[2018-01-12] MEDS ORDERED: Magnesium 2 GM/50 ML 2 GM in Premix Bag 1 BAG IVPB SCH (19:30)
[2018-01-12] MEDS: Dexamethasone 1 MG TAB PO SCH (19:46)
[2018-01-12] MEDS: Latanoprost 0.005% Ophth Soln 2.5 ml Bottle EA EYE SCH (20:43)
[2018-01-12] MEDS: D5 0.9% NS w/ 20 mEq KCl 1,000 ML IV SCH (20:58)
--- NOTE | 2018-01-12 21:46 | CON ---
DATE OF CONSULTATION: 01/12/2018 HISTORY OF PRESENT ILLNESS: The patient is a 77-year-old gentleman who Dr. Vasquez originally saw in [facility] outpatient setting for positive Cologuard. I saw him initially in 12/13/2017. At that time, he rivera d a small bowel obstruction. He also had a right renal mass that felt to be renal cell carcinoma and he had changes consistent with metastasis. He had atrial fibrillation and was on Eliquis. He under went a small bowel resection by Dr. Rascon and ever since that time, the patient reports he has been having blood per rectum. Initially, it was dark red, sometimes black, but it has become more bright as time has gone on. He is not eating very well. He is losing weight. He says his appetite is poor . He has continued his Eliquis up until admission. PAST MEDICAL HISTORY: Atrial fibrillation, on Eliquis; renal cell carcinoma, metastatic; hyperlipide sonja; lupus; hypertension; coronary artery disease. PAST SURGICAL HISTORY: Includes cardiac ablation, coronary artery bypass, small bowel resection. ALLERGIES: No known allergies. SOCIAL HISTORY: Does not smoke or drink. FAMILY HISTORY: Negative for GI or liver disease. MEDICATIONS: Travatan Z eyedrops 1 drop in each eye at bedtime; metoprolol 50 mg p.o. at bedtime, Pl aquenil 200 mg p.o. b.i.d., Microzide 12.5 mg p.o. daily, atorvastatin 40 mg p.o. at bedtime, aspirin 81 mg p.o. daily, Eliquis 5 mg p.o. daily. REVIEW OF SYSTEMS: Constitutional: No fever or chills. Positive weight loss. Eyes: No blurred vi melony or double vision. ENT: No sore throat or earaches. Cardiovascular: No chest pain or palpitat ions. Pulmonary: No shortness of breath, cough, or wheezing. Gastrointestinal: See above. Genito urinary: No hematuria or dysuria. Musculoskeletal: No joint pain or muscle weakness. Skin: No ra shes. Neurologic: No numbness or seizure activity. PHYSICAL EXAMINATION: VITAL SIGNS: Temperature 97.5, pulse 96, respiratory rate 20, blood pressure 99/64. HEENT: Unremarkable. NECK: Supple. CHEST: Clear. CARDIOVASCULAR: Regular rate and rhythm. ABDOMEN: Somewhat protuberant. Bowel sounds are present, normoactive. RECTAL: Deferred. EXTREMITIES: Normal. NEUROLOGIC: Nonfocal. LABORATORY DATA: Shows an admission hemoglobin 6.1, hematocrit 7.6. PT is 12.9 with an INR of 0.9. Laboratory shows a sodium of 133, CO2 of 16, BUN 41, creatinine 1.78, total bilirubin 9, AST 119, al kaline phosphatase 750, ferritin 908, albumin 2.2. ASSESSMENT: 1. Gastrointestinal bleed. 2. Atrial fibrillation, on Eliquis. 3. Metastatic renal cell carcinoma. 4. History of small bowel obstruction. RECOMMENDATIONS: 1. Hold Eliquis - this may need to be held indefinitely since the patient's risk of stroke from atri al fibrillation is low, considering his prognosis from his renal cell carcinoma. 2. EGD and colonoscopy in a.m.
--- NOTE | 2018-01-13 00:09 | CON ---
DATE OF CONSULTATION: 01/12/2018 HISTORY: Wood Arzate is a 77-year-old white male with a previous history of CABG and chronic atrial fibrillation. This apparently started in 06/2017 according to the patient. He did undergo Lexiscan Cardiolite test in the office at that time, which was felt to probably be normal. He also has since been found to have metastatic renal cell carcinoma and has abnormal liver function test. He was just discharged to go home with hospice, but apparently that has not been arranged yet. Yesterday, he developed increased shortness of breath and was told to go to emergency room. He also states he has been having bright red blood per rectum which he thinks it has been going on for several weeks. He denies any chest discomfort and only has mild shortness of breath. PAST MEDICAL HISTORY: Coronary artery disease, hypertension, hyperlipidemia, chronic atrial fibrillation, systemic lupus, metastatic renal cell carcinoma, history of transient ischemic attack. OPERATIONS: CABG, cataract surgery, bowel resection in 11/2017, which on pathology, it was consistent with metastatic renal cell carcinoma. SOCIAL HISTORY: Does not smoke or drink. MEDICATIONS: Eliquis 5 mg b.i.d., aspirin 81 daily, atorvastatin 80 mg at bedtime, hydrochlorothiazide 12.5 daily, metoprolol 50 at bedtime, Plaquenil 200 mg b.i.d., Travatan Z eyedrops at bedtime. ALLERGIES: None. PHYSICAL EXAMINATION: VITAL SIGNS: Blood pressure 112/58, pulse of 114 and irregularly irregular. HEENT: PERRL. NECK: Supple. CHEST: Clear. CARDIAC: S1 and S2 are normal, without any S3 or S4. There is a 2/6 systolic ejection murmur in the aortic area. ABDOMEN: Normal bowel sounds without tenderness. EXTREMITIES: Revealed trace pretibial edema. NEUROLOGIC: Grossly intact. LABORATORY AND DIAGNOSTIC DATA: EKG reveals atrial fibrillation with rapid ventricular response of 130 per minute, right bundle branch block. Also, his 16 beats of wide complex tachycardia are very irregular and probably it is due to his atrial fibrillation with aberrancy. It is of note that echocardiogram done in the office in 06/2017, revealed ejection fraction of 55-60%. Hemoglobin yesterday on presentation was 6.1, last one was 6.9. Sodium 134, potassium 3.5, chloride 104, carbon dioxide 20, BUN 42, creatinine 1.88. IMPRESSION: 1. Lower gastrointestinal bleed while on Eliquis. 2. History of metastatic renal cell carcinoma. 3. Elevated liver function test. 4. Severe anemia. 5. Chronic atrial fibrillation. 6. Status post coronary artery bypass graft. PLAN: The patient is DNR and arrangements will be made for hospice. I would permanently discontinue the Eliquis with his current problems, even though that would increase his risk of stroke. This was discussed with the patient. Once he has been adequately transfused, if he continues to be tachycardic then digoxin may need to be added since his blood pressures such that, I do not feel his beta kong could be further increased and diltiazem also with somewhat reduced his blood pressure. MTDD
[2018-01-13 04:12] LABS: Hemoglobin 9.7 g/dL (14.0-18.0); Platelet Count 249 thou/uL (130-400)
[2018-01-13 04:28] LABS: Anion Gap 14 mmol/L (10-20); BUN (Urea Nitrogen) 38 mg/dL (8.4-25.7); Calc. Creatinine Clearance 31 mL/min (70-130); Calcium 7.6 mg/dL (7.8-10.44); Carbon Dioxide 22 mmol/L (23-31); Chloride 103 mmol/L (98-107); Estimated GFR-MDRD 36; Glucose 118 mg/dL (83-110); Magnesium 2.2 mg/dL (1.6-2.6); Potassium 3.4 mmol/L (3.5-5.1); Sodium 136 mmol/L (136-145)
[2018-01-13] MEDS ORDERED: Promethazine HCl 25 MG/ML VIAL SLOW IVP PRN (10:42)
[2018-01-13] MEDS ORDERED: Ondansetron HCl/PF 4 MG/2 ML Vial IVP PRN (10:42)
[2018-01-13] MEDS ORDERED: Promethazine HCl 25 MG/ML VIAL IM PRN (10:42)
--- NOTE | 2018-01-13 11:01 | OP ---
PREOPERATIVE DIAGNOSIS: Gastrointestinal bleed. PROCEDURE IN DETAIL: After informed consent was obtained, the patient was placed in the left lateral decubitus position. Anesthesia was administered per the Anesthesia Department. Forward-viewing end oscope was inserted into the esophagus under direct visualization with ease and passed to the second portion of the duodenum with ease. Second portion of the duodenum was abnormal and the fact that the re was nodularity throughout the mucosa and partial obstruction of the lumen. There was no retained gastric contents, therefore complete obstruction was not felt to be present. Biopsies were taken of the nodular mucosa. This area of nodular mucosa could not be passed with the endoscope. The remaind er of the duodenum, pylorus, antrum, body, fundus, and cardia were normal. Retroflexion in the stoma ch was normal. ASSESSMENT: Nodular duodenitis with associated partial obstruction - status post biopsy; this possib ly could represent extrinsic compression. RECOMMENDATIONS: 1. Await histopathology. 2. Proceed with colonoscopy. PROCEDURE IN DETAIL: After informed consent was obtained, the patient was placed in the left lateral decubitus position. Anesthesia was administered per the Anesthesia Department. Forward-viewing col onoscope was inserted into the rectum after perianal inspection and rectal exam were normal. This pa ssed to the cecum with some looping. The cecum, ileocecal valve, and appendiceal orifice were normal . The prep was good. In the ascending colon, a clot was noted on the mucosa that was seemed to be b right red. It was washed and there was a small bleeding area of mucosa, possibly a small AVM. This was treated with a 10-[place] BICAP probe with good hemostasis. The remainder of the ascending, trans verse, descending, sigmoid and rectum were normal. Retroflexion in the rectum was normal. ASSESSMENT: Small bleeding AVM in the ascending colon - status post BICAP electrocautery. Otherwise normal colonoscopy. RECOMMENDATION: 1. Discontinue Eliquis permanently. 2. Stable for discharge from gastrointestinal standpoint.
[2018-01-13] MEDS: Potassium Chloride 10 MEQ TAB PO SCH ×2 (11:14→17:35)
[2018-01-13] MEDS: Hydroxychloroquine Sulfate 200 MG TAB PO SCH ×2 (11:14→21:18)
[2018-01-13] MEDS: Metoprolol Tartrate 25 MG TAB PO SCH ×2 (11:15→21:20)
[2018-01-13] MEDS: Brimonidine Tartrate 0.2% Ophth Soln 5 ml Bottle EA EYE SCH ×2 (11:15→21:21)
[2018-01-13] MEDS: Timolol 0.5% Ophth Soln 5 ml Bottle EA EYE SCH ×2 (11:17→21:21)
[2018-01-13] MEDS: Dexamethasone 1 MG TAB PO SCH ×2 (11:21→17:35)
--- NOTE | 2018-01-13 12:19 | EKG ---
Test Reason : Blood Pressure : / mmHG Vent. Rate : 130 BPM Atrial Rate : 039 BPM P-R Int : 000 ms QRS Dur : 134 ms QT Int : 344 ms P-R-T Axes : 000 264 057 degrees QTc Int : 506 ms Atrial fibrillation with rapid ventricular response with premature ventricular or aberrantly conducte d complexes Right bundle branch block Abnormal ECG No acute changes from 12/12/2017 Confirmed by ODALYS ANDREWS ([id number]), senior editor DIEGO [employer]OX ([id number]) on 01/13/2018 12:19:27 PM Referred By: Confirmed By:ODALYS ANDREWS
[2018-01-13] MEDS ORDERED: PROPOFOL 200 MG/20 ML VIAL ONE (13:54)
--- NOTE | 2018-01-13 16:40 | PDOC.PN ---
- Subjective Encounter Start Date: 01/13/18 Encounter Start Time: 13:00 Patient seen and examined for GI bleed. No new bleeding episodes. No new complaints. No overnight events - Objective Resuscitation Status: Resuscitation Status DNR:Do Not Resuscitate MAR Reviewed: Yes Vital Signs & Weight: Vital Signs (12 hours) Temp Pulse Resp BP BP Pulse Ox 01/13/18 15:21 98.9 F 102 H 16 107/72 01/13/18 11:17 106 H 01/13/18 11:06 98.2 F 106 H 18 101/63 99 01/13/18 07:21 97.4 F L 121 H 15 116/81 100 01/13/18 07:15 99 Weight Admit Weight 142 lb 4 oz Weight 139 lb 6.4 oz I&O: 01/12/18 01/13/18 01/14/18 06:59 06:59 06:59 Intake Total 870 1300 Output Total 725 1230 Balance 145 70 Result Diagrams: 01/13/18 03:50 01/13/18 03:50 EKG Reviewed by me: Yes (Tele Afib) Phys Exam - Physical Examination Constitutional: NAD Yellow skin discoloration Respiratory: no wheezing, no rhonchi Cardiovascular: RRR, no rub Gastrointestinal: soft, non-tender, positive bowel sounds Musculoskeletal: no edema Neurological: moves all 4 limbs Dx/Plan - Plan DVT proph w/SCDs 1. GI bleed with acute blood loss anemia Transfuse to keep Hb >7 Gentle IV hydration, s/p EGD and Colonoscopy, Eliquis dced 2. Afib with RVR Cont BB, Not anticoag candidate due to GI bleed 3. LLL Pneumonia - ?Pneumococcal Cont Levaquin 4. JOHN on CKD 3 / Metabolic acidosis/hyponatremia/Hypomagnessemia/Hypokalemia Gentle hydration, Daily labs, Replace Potassium 5. Relative adrenal insufficiency - Cont Dexamethasone 6. Renal CA with biliary obstruction causing abn LFTs / Moderate PEM / CAD s/p CABG / SLE / Other issues per H&P 7. Transfer to [facility] per patient req Review of Systems - Review of Systems Respiratory: negative: Cough, Dry, Shortness of Breath, Hemoptysis, SOB with Excertion, Pleuritic Pain, Sputum, Wheezing Cardiovascular: negative: chest pain, palpitations, orthopnea, paroxysmal nocturnal dyspnea, edema, light headedness, other Gastrointestinal: negative: Nausea, Vomiting, Abdominal Pain, Diarrhea, Constipation, Melena, Hematochezia, Other - Medications/Allergies Allergies/Adverse Reactions: Allergies Allergy/AdvReac Type Severity Reaction Status Date / Time No Known Allergies Allergy Verified 01/12/18 01:34 Medications: Current Medications Brimonidine Tartrate (Alphagan 0.2% Ophth Soln) 1 drop EA EYE BID [facility] Last Admin: 01/13/18 11:15 Dose: 1 drop Dexamethasone (Decadron) 2 mg PO BID-[facility] Last Admin: 01/13/18 11:21 Dose: 2 mg Famotidine (Pepcid) 20 mg PO 2100 [facility] Hydroxychloroquine Sulfate (Plaquenil) 200 mg PO BID [facility] Last Admin: 01/13/18 11:14 Dose: 200 mg Levofloxacin 500 mg/ Device 100 mls @ 100 mls/hr IVPB Q24HR [facility] Last Admin: 01/13/18 00:19 Dose: 100 mls Potassium Chloride/Dextrose/Sod Cl (D5 0.9% Ns W/ 20 Meq Kcl) 1,000 mls @ 50 mls/hr IV .Q20H [facility] Last Admin: 01/12/18 20:58 Dose: 1,000 mls Latanoprost (Xalatan 0.005% Ophth Soln) 1 drop EA EYE HS [facility] Last Admin: 01/12/18 20:43 Dose: 1 drop Metoprolol Tartrate (Lopressor) 12.5 mg PO BID [facility] Last Admin: 01/13/18 11:15 Dose: 12.5 mg Ondansetron HCl (Zofran) 4 mg IVP Q6H PRN PRN Reason: Nausea/Vomiting Pantoprazole Sodium (Protonix) 40 mg PO BID [facility] Potassium Chloride (Klor-Con 10) 10 meq PO TID-[facility] Stop: 01/13/18 17:01 Last Admin: 01/13/18 11:14 Dose: 10 meq Sodium Chloride (Flush - Normal Saline) 10 ml IVF PRN PRN PRN Reason: Saline Flush Last Admin: 01/13/18 00:19 Dose: 10 ml Timolol Maleate (Timoptic 0.5% Ophth Soln) 1 drop EA EYE BID [facility] Last Admin: 01/13/18 11:17 Dose: 1 drop
[2018-01-13] MEDS: D5 0.9% NS w/ 20 mEq KCl 1,000 ML IV SCH (21:16)
[2018-01-13] MEDS: Latanoprost 0.005% Ophth Soln 2.5 ml Bottle EA EYE SCH (21:17)
[2018-01-13] MEDS: Famotidine 20 MG TAB PO SCH (21:20)
[2018-01-14 05:00] LABS: Hemoglobin 9.4 g/dL (14.0-18.0); Platelet Count 210 thou/uL (130-400)
[2018-01-14 05:32] LABS: Anion Gap 10 mmol/L (10-20); BUN (Urea Nitrogen) 37 mg/dL (8.4-25.7); Calc. Creatinine Clearance 34 mL/min (70-130); Calcium 7.1 mg/dL (7.8-10.44); Carbon Dioxide 23 mmol/L (23-31); Chloride 104 mmol/L (98-107); Estimated GFR-MDRD 40; Glucose 130 mg/dL (83-110); Magnesium 1.9 mg/dL (1.6-2.6); Potassium 3.6 mmol/L (3.5-5.1); Sodium 133 mmol/L (136-145)
[2018-01-14] MEDS: Metoprolol Tartrate 25 MG TAB PO SCH ×2 (08:31→20:57)
[2018-01-14] MEDS: Dexamethasone 1 MG TAB PO SCH ×2 (08:31→15:56)
[2018-01-14] MEDS: Hydroxychloroquine Sulfate 200 MG TAB PO SCH ×2 (08:31→20:57)
[2018-01-14] MEDS: Brimonidine Tartrate 0.2% Ophth Soln 5 ml Bottle EA EYE SCH ×2 (08:32→20:59)
[2018-01-14] MEDS: Timolol 0.5% Ophth Soln 5 ml Bottle EA EYE SCH ×2 (08:32→20:58)
[2018-01-14] MEDS ORDERED: Digoxin 0.5 MG/2 ML AMP SLOW IVP SCH ×2 (09:00→15:00)
[2018-01-14] MEDS ORDERED: Atorvastatin Calcium 40 MG TAB PO SCH (09:00)
--- NOTE | 2018-01-14 13:57 | PRG ---
DATE OF SERVICE: 01/14/2018 SUBJECTIVE: The patient has had no further bloody bowel movements. He denies any abdominal pain, fe alix, or chills. OBJECTIVE: VITAL SIGNS: Temperature 97.9, pulse 87, respiratory rate 16, blood pressure 101/62. CHEST: Clear. CARDIOVASCULAR: Regular rate and rhythm. ABDOMEN: Soft, nontender, without organomegaly or masses. LABORATORY DATA: Shows a sodium 133, BUN 37, creatinine 1.67, glucose 130. Hemoglobin is 9.4, hemat ocrit 28.8. ASSESSMENT: 1. Gastrointestinal bleed - seems to have resolved. 2. Metastatic renal cell carcinoma. RECOMMENDATIONS: 1. Discontinue Eliquis. 2. Stable for discharge from gastrointestinal standpoint. 3. We will sign off.
--- NOTE | 2018-01-14 19:18 | PDOC.PN ---
- Subjective Encounter Start Date: 01/14/18 Encounter Start Time: 12:00 Patient seen and examined for GI bleed. No new hematochezia. No new complaints. No overnight events - Objective Resuscitation Status: Resuscitation Status DNR:Do Not Resuscitate MAR Reviewed: Yes Vital Signs & Weight: Vital Signs (12 hours) Temp Pulse Resp BP Pulse Ox 01/14/18 15:57 88 01/14/18 15:38 98.1 F 88 16 108/70 99 01/14/18 12:00 97.9 F 87 16 101/62 99 01/14/18 10:28 108 H 01/14/18 08:32 108 H 01/14/18 07:50 100 01/14/18 07:28 98.1 F 108 H 16 117/79 100 Weight Admit Weight 142 lb 4 oz Weight 139 lb 9.6 oz I&O: 01/13/18 01/14/18 01/15/18 06:59 06:59 06:59 Intake Total 1300 2190 1250 Output Total 1230 450 550 Balance 70 1740 700 Result Diagrams: 01/15/18 04:50 01/15/18 04:50 EKG Reviewed by me: Yes (Tele Afib) Phys Exam - Physical Examination Constitutional: NAD Respiratory: no wheezing, no rhonchi Bibasilar rales Cardiovascular: RRR, no rub Gastrointestinal: soft, non-tender, positive bowel sounds Musculoskeletal: no edema Dx/Plan - Plan DVT proph w/SCDs 1. GI bleed with acute blood loss anemia s/p EGD and Colonoscopy, Eliquis dced HH in AM, Cont IVF 2. Afib with RVR - rate controlled. Cont BB, Not anticoag candidate due to GI bleed 3. LLL Pneumonia - ?Pneumococcal Cont Levaquin 4. JOHN on CKD 3 - improving / Metabolic acidosis/hyponatremia/Hypomagnessemia/ Hypokalemia Gentle hydration, Daily labs 5. Relative adrenal insufficiency - Cont PO Dexamethasone 6. Renal CA with biliary obstruction causing abn LFTs / Severe PEM (present on admission) / CAD s/p CABG / SLE / Other issues per H&P 7. Transfer to [facility] in AM if accepted Review of Systems - Review of Systems Respiratory: negative: Cough, Dry, Shortness of Breath, Hemoptysis, SOB with Excertion, Pleuritic Pain, Sputum, Wheezing Cardiovascular: negative: chest pain, palpitations, orthopnea, paroxysmal nocturnal dyspnea, edema, light headedness, other - Medications/Allergies Allergies/Adverse Reactions: Allergies Allergy/AdvReac Type Severity Reaction Status Date / Time No Known Allergies Allergy Verified 01/12/18 01:34 Medications: Current Medications Brimonidine Tartrate (Alphagan 0.2% Ophth Soln) 1 drop EA EYE BID [facility] Last Admin: 01/14/18 08:32 Dose: 1 drop Dexamethasone (Decadron) 2 mg PO BID-[facility] Last Admin: 01/14/18 15:56 Dose: 2 mg Digoxin (Lanoxin) 0.125 mg PO DAILY [facility] Famotidine (Pepcid) 20 mg PO 2100 [facility] Last Admin: 01/13/18 21:20 Dose: 20 mg Hydroxychloroquine Sulfate (Plaquenil) 200 mg PO BID [facility] Last Admin: 01/14/18 08:31 Dose: 200 mg Levofloxacin 500 mg/ Device 100 mls @ 100 mls/hr IVPB Q24HR [facility] Last Admin: 01/14/18 00:28 Dose: 100 mls Potassium Chloride/Dextrose/Sod Cl (D5 0.9% Ns W/ 20 Meq Kcl) 1,000 mls @ 50 mls/hr IV .Q20H [facility] Last Admin: 01/13/18 21:16 Dose: 1,000 mls Latanoprost (Xalatan 0.005% Ophth Soln) 1 drop EA EYE HS [facility] Last Admin: 01/13/18 21:17 Dose: 1 drop Metoprolol Tartrate (Lopressor) 12.5 mg PO BID [facility] Last Admin: 01/14/18 08:31 Dose: 12.5 mg Ondansetron HCl (Zofran) 4 mg IVP Q6H PRN PRN Reason: Nausea/Vomiting Pantoprazole Sodium (Protonix) 40 mg PO BID [facility] Last Admin: 01/14/18 08:31 Dose: 40 mg Sodium Chloride (Flush - Normal Saline) 10 ml IVF PRN PRN PRN Reason: Saline Flush Last Admin: 01/13/18 00:19 Dose: 10 ml Timolol Maleate (Timoptic 0.5% Ophth Soln) 1 drop EA EYE BID [facility] Last Admin: 01/14/18 08:32 Dose: 1 drop
[2018-01-14] MEDS: Latanoprost 0.005% Ophth Soln 2.5 ml Bottle EA EYE SCH (20:55)
[2018-01-14] MEDS: Famotidine 20 MG TAB PO SCH (20:56)
[2018-01-14] MEDS: D5 0.9% NS w/ 20 mEq KCl 1,000 ML IV SCH (21:16)
[2018-01-15 05:04] LABS: Hemoglobin 7.6 g/dL (14.0-18.0); Platelet Count 222 thou/uL (130-400)
[2018-01-15 05:30] LABS: ALT (SGPT) 60 U/L (8-55); AST (SGOT) 133 U/L (5-34); Albumin 2.2 g/dL (3.4-4.8); Alkaline Phosphatase 895 U/L (40-150); Anion Gap 10 mmol/L (10-20); BUN (Urea Nitrogen) 34 mg/dL (8.4-25.7); Bilirubin, Total 10.5 mg/dL (0.2-1.2); Calc. Creatinine Clearance 37 mL/min (70-130); Calcium 7.3 mg/dL (7.8-10.44); Carbon Dioxide 21 mmol/L (23-31); Chloride 107 mmol/L (98-107); Estimated GFR-MDRD 45; Globulin 2.2 g/dL (2.4-3.5); Glucose 102 mg/dL (83-110); Magnesium 1.9 mg/dL (1.6-2.6); Phosphorus 2.5 mg/dL (2.3-4.7); Potassium 4.2 mmol/L (3.5-5.1); Protein, Total 4.4 g/dL (5.8-8.1); Sodium 134 mmol/L (136-145)
[2018-01-15] MEDS ORDERED: Digoxin 0.125 MG TAB PO SCH (09:00)
--- NOTE | 2018-01-15 09:01 | PDOC.CTH ---
Cardiology Progress Note - Subjective Pt feels weak. States he had a black stool yesterday pm. Appears jaundice - Objective Vital Signs Temp Pulse Resp BP BP Pulse Ox 01/15/18 07:52 97.7 F 78 18 124/76 98 01/15/18 07:26 97 01/15/18 04:00 97.6 F 73 18 124/82 96 01/15/18 00:00 97.7 F 75 18 102/52 L 99 Admit Weight 142 lb 4 oz Weight 139 lb 6.4 oz 01/14/18 01/15/18 01/16/18 06:59 06:59 06:59 Intake Total 2190 2170 Output Total 450 1040 Balance 1740 1130 - Physical Examination General/Neuro: alert & oriented x3, NAD Neck: carotid US brisk, no JVD present Lungs: CTA, unlabored respirations Heart: other: (IRR, controlled) Abdomen: NT/ND, soft Extremities: + femoral B - Telemetry Telemetry Rhythm: afib - Labs Result Diagrams: 01/15/18 04:50 01/15/18 04:50 Troponin/CKMB CK-MB (CK-2) 2.8 ng/mL (0-6.6) 01/11/18 20:38 Troponin I 0.173 ng/mL (< 0.028) H 01/11/18 20:38 - Assessment/Plan afib GI bleed metastatic renal cell cencer Pt with recent EGD with duodenitis Hb stabilizing Continue to monitor Hb No further ACT given recent bleeding event Pt understands the risk of CVA but also noted the risk fo recurrent bleed Pt states they arq planning to transfer to [facility] once stable
[2018-01-15] MEDS: Dexamethasone 1 MG TAB PO SCH (09:48)
[2018-01-15] MEDS: Metoprolol Tartrate 25 MG TAB PO SCH (09:48)
[2018-01-15] MEDS: Hydroxychloroquine Sulfate 200 MG TAB PO SCH (09:49)
[2018-01-15] MEDS: Timolol 0.5% Ophth Soln 5 ml Bottle EA EYE SCH (09:50)
[2018-01-15] MEDS: Brimonidine Tartrate 0.2% Ophth Soln 5 ml Bottle EA EYE SCH (09:50)
[2018-01-15 12:14] VITALS: BP 98/48; TEMP 97.8
[2018-01-15 13:25] VITALS: BMI 19.4
--- NOTE | 2018-01-15 14:19 | PQF ---
CLINICAL DOCUMENTATION IMPROVEMENT CLARIFICATION FORM: ICD-10 Updated PLEASE DO AN ADDENDUM TO THE PROGRESS NOTE WITH ANY DOCUMENTATION UPDATES OR ADDITIONS AND CARRY THROUGH TO DC SUMMARY. THANK YOU. Date: 01/15/18 ATTN: DR. MTZ Please exercise your independent, professional judgment in responding to the clarification form. Clinical indicators are provided on the bottom of this form for your review Please check appropriate box(s): [ ] Protein Calorie Malnutrition: [ ] Mild [ ] Moderate [ ] Severe [ ] Other Malnutrition (please specify) __ [ ] Underweight without malnutrition [ ] Cachexia [ ] Other diagnosis [ ] Unable to determine In addition, please specify: Present on Admission (POA): [ ] Yes [ ] No [ ] Unable to determine CLINICAL INDICATORS - SIGNS / SYMPTOMS / LABS DIETARY NOTE 01/12: "PATIENT REPORTS A POOR APPETITE, HAS BEEN DECLINING SINCE spring. AT BEDSIDE STATES 'HE NEVER EATS ANYTHING SUBSTANTIAL.' " "EDEMA BLE" "14% WEIGHT LOSS IN ~6 MONTHS" DIETARY NOTE 01/15: "PATIENT REPORT OF LIMITED INTAKE D/T INABILITY TO SIT UP PROPERLY IN BED" "KCAL AND G PROTEIN REQUIREMENTS LIKELY NOT MET" BMI 19.4 ALBUMIN 01/11: 2.2 RISKS: KIDNEY CA WITH METASTATIC DISEASE POOR WOUND HEALING DUODENITIS WITH PARTIAL OBSTRUCTION AND BLEEDING DIARRHEA LAST COUPLE OF WEEKS (PER DIETARY NOTE 01/12) TREATMENT: DIETARY CONSULT GI CONSULT NUTRITIONAL SUPPLEMENTS PROTONIX (01/13-PRESENT) ZOFRAN ORDERED (01/11-PRESENT) SAP Pilot Crystal Reports Winform Viewer Moderate Malnutrition (in acute illness) Energy Intake: <75% of estimated energy requirement for > 7 days Weight Loss: 1-2%/1 week; 5%/ 1 month; 7.5%/3 months Other: mild body fat loss; mild muscle mass loss; mild fluid accumulation; Severe Malnutrition (in acute illness) Energy Intake: < 50% of estimated energy requirement for > 5 days Weight Loss: >1-2%/1 week; >5%/1 month; >7.5%/3 months Other: moderate body fat loss; moderate muscle mass loss; moderate- severe fluid accumulation; measurably reduced application manager strength Moderate Malnutrition (in chronic illness) Energy Intake: <75% of estimated energy requirement for >1 month Weight Loss: 5%/1 month; 7.5%/3 months; 10%/6 months; 20%/1 year Other: mild body fat loss; mild muscle mass loss; mild fluid accumulation Severe Malnutrition (in chronic illness) Energy Intake: <75% of estimated energy requirement for >1 month Weight Loss: >5%/1 month; >7.5%/3 months; >10%/6 months; >20%/1 year Other: severe body fat loss; severe muscle mass loss; severe fluid accumulation ; measurably reduced application manager strength (This form is maintained as a part of the permanent medical record) 2014 [employer] All Rights Reserved SAVANA [email or web address] Office: [phone] JASPREET
--- NOTE | 2018-01-15 14:54 | PRG ---
DATE OF SERVICE: 01/15/2018 SUBJECTIVE: Mr. Arzate is feeling about the same. He had a black bowel movement last night. No inc rease in abdominal pain. They are awaiting transfer to [facility], which may actually happen later today. OBJECTIVE: VITAL SIGNS: Temperature 97.8, pulse 68, blood pressure 98/48, 99% oxygen saturation on room air. GENERAL: He is jaundiced, in no acute distress. HEART: Regular rate and rhythm. LUNGS: Clear to auscultation bilaterally. ABDOMEN: Bowel sounds present, soft and nontender to palpation. EXTREMITIES: No peripheral edema. LABORATORY STUDIES: Hemoglobin went down again to 7.6, hematocrit 23.5, platelets 222. Sodium 134, potassium 4.2, BUN 34, creatinine 1.53, total bilirubin is now up to 10.5, alkaline phosphatase 895, AST 133, ALT 60, albumin 2.2. ASSESSMENT AND PLAN: 1. Gastrointestinal hemorrhage. 2. Duodenitis, biopsied by Dr. Burgess yesterday. 3. Colonic arteriovenous malformation, cauterized by Dr. Burgess over the weekend. 4. Malignant biliary obstruction. 5. Metastatic renal cell carcinoma. The patient is again desiring a transfer to [facility] for further evaluation and it appears this ma y actually happen this afternoon. The last I had spoken with him last week, he had been leaning [facility] [place] [facility]. I again had a long discussion with him and his that there is no single correct answer here. His prognosis is quite poor. I do suspect that his renal cell carcinoma is what is ca using this extrinsic compression of the duodenum as well as his biliary obstruction. Dr. Burgess was un able to advance the duodenoscope beyond the second portion of the duodenum over the weekend, so I fee l any attempt at ERCP would likely not be successful. Continue with supportive care in the meantime. No other recommendations from a GI standpoint in the meantime.
--- NOTE | 2018-01-16 10:43 | DIS ---
DATE OF DISCHARGE: 01/15/2018 DISCHARGE DISPOSITION: [facility]. The patient was seen and examined on the day of discharge, denies any new complaints. BRIEF HOSPITAL COURSE: The patient is a 77-year-old male with recently diagnosed metastatic renal ce ll carcinoma, presented to the hospital with shortness of breath and hematochezia. Please refer to t he history and physical dated 01/11/2018 for further details. The patient was admitted to the hospital in the Intermediate Care Unit with a diagnosis of GI bleedin g with acute blood loss anemia. He received 2 units of blood transfusion. His hemoglobin on admissi on was 6.1 and at discharge is 7.6. The patient was discharged to [facility] for higher level of care. He underwent EGD that showed nodular duodenitis with associated partial obstruction, status po st biopsy (could be extrinsic compression). His colonoscopy showed small bleeding AVM in the ascendi ng colon, status post electrocautery. Otherwise, the colonoscopy was normal. Eliquis has been perma nently discontinued. His H&H has remained stable. FINAL DIAGNOSES: 1. Gastrointestinal bleeding with acute blood loss anemia, status post EGD and colonoscopy as discus sed above. The patient received 2 units of PRBC. 2. Atrial fibrillation with rapid ventricular response. The patient was evaluated by Cardiology. L ow dose beta blockers were started. He also received 1 dose of digoxin. Anticoagulation discontinue d due to gastrointestinal bleeding. 3. Suspected left lower lobe pneumonia. The patient was placed on Levaquin. 4. Acute kidney injury on chronic kidney disease stage 3 with metabolic acidosis. 5. Hypomagnesemia. 6. Hyponatremia. 7. Relative adrenal insufficiency. Patient was on dexamethasone during his hospital stay. 8. Renal cell carcinoma with biliary tract obstruction with significantly abnormal liver function te sts. 9. Severe protein calorie malnutrition. 10. Coronary artery disease, status post coronary artery bypass grafting. 11. Systemic lupus erythematosus. DISCHARGE MEDICATIONS: Please note that I was unaware when the patient left the hospital for [facility].
== END 2018-01-15 14:44 | disposition designated cancer center or children's hospital (05) | DRG 377 ==
LOC: ERS 19:29 → IMCU/EMU 21:50
PROVIDERS: ADMIT Internal Medicine; ATTEND Internal Medicine
PROC: 30233N1 Transfusion of Nonautologous Red Blood Cells into Peripheral Vein, Percutaneous Approach (ICD-10-PCS; principal; 2018-01-11)
PROC: 0DB98ZX Excision of Duodenum, Via Natural or Artificial Opening Endoscopic, Diagnostic (ICD-10-PCS; 2018-01-13)
PROC: 0W3P8ZZ Control Bleeding in Gastrointestinal Tract, Via Natural or Artificial Opening Endoscopic (ICD-10-PCS; 2018-01-13)
DX: K55.21 Angiodysplasia of colon with hemorrhage (principal); J18.9 Pneumonia, unspecified organism; K83.1 Obstruction of bile duct; E43 Unspecified severe protein-calorie malnutrition; D62 Acute posthemorrhagic anemia; C64.1 Malignant neoplasm of right kidney, except renal pelvis; C78.7 Secondary malignant neoplasm of liver and intrahepatic bile duct; N17.9 Acute kidney failure, unspecified; E27.40 Unspecified adrenocortical insufficiency; E87.2 Acidosis; E87.1 Hypo-osmolality and hyponatremia; Z68.1 Body mass index [BMI] 19.9 or less, adult; K29.80 Duodenitis without bleeding; I48.2 Chronic atrial fibrillation; Z66 Do not resuscitate; I12.9 Hypertensive chronic kidney disease with stage 1 through stage 4 chronic kidney disease, or unspecified chronic kidney disease; N18.3 Chronic kidney disease, stage 3 (moderate); E83.42 Hypomagnesemia; E87.6 Hypokalemia; M32.9 Systemic lupus erythematosus, unspecified; I25.10 Atherosclerotic heart disease of native coronary artery without angina pectoris; Z86.73 Personal history of transient ischemic attack (TIA), and cerebral infarction without residual deficits; Z95.1 Presence of aortocoronary bypass graft; Z79.01 Long term (current) use of anticoagulants; Z79.82 Long term (current) use of aspirin
CPT/HCPCS: 36415; 36430; 71046; 80048; 80053; 80076; 82533; 82553; 82728; 83540; 83550; 83735; 83880; 84100; 84484; 85014; 85018; 85025; 85049; 86850; 86900; 86901; 88305; 93005; 94760; 96361; 96374; J1160; J1940; J1956; J2704; J8540; P9016